=== PATIENT | female | born 1990 | race Hispanic/Latino ===

== ENCOUNTER 2022-08-27 15:22 | Emergency (ER) | payer OTHER, SELFPAY ==
[2022-08-27 15:31] VITALS: BP 125/72; PULSE 64; RESP 16; TEMP 36.8; O2SAT 100; BMI 25.0
--- NOTE | 2022-08-27 15:34 | DI.RAD.S_ITS ---
PROCEDURE: XR ANKLE LT MIN 3V INDICATIONS: ankle pain, fall TECHNIQUE: 3 views of the ankle were acquired. COMPARISON: None. FINDINGS: Bones: No fractures or dislocations. Ankle mortise is normally aligned. No suspicious bony lesions. Soft tissues: No tibiotalar joint effusion. Achilles tendon appears normal. IMPRESSION: No visualized acute fracture or dislocation. However, if clinical concern and/or pain persist, short interval imaging followup in 7-10 days is recommended, as occult injury cannot be definitively excluded. Dictated by: Kim Palmer M.D. on 08/27/2022 at 16:50 Approved by: Kim Palmer M.D. on 08/27/2022 at 16:50
--- NOTE | 2022-08-27 17:56 | ED_ITS ---
HPI - Extremity Injury (Lower) <Chinmay Salgado PA-C - Last Filed: 08/27/22 18:26> General Chief Complaint: Extremity Injury, Lower Stated Complaint: lt ankle injury Time Seen by Provider: 08/27/22 17:26 Source: patient Mode of arrival: Ambulatory History of Present Illness HPI Narrative: This is a 32-year-old female presents to the emergency department due to left ankle and foot pain after stepping off a stair and rolling it. She denies any numbness, changes in movement of her toes but does state some left ankle pain. Related Data Allergies Allergy/AdvReac Type Severity Reaction Status Date / Time No Known Drug Allergies Allergy Verified 08/27/22 15:33 Review of Systems <FLOWER Barrett Last Filed: 08/27/22 18:26> Review of Systems Narrative: GENERAL: Denies chills, fatigue, malaise, fever, sweats. HEENT: Denies sinus pain, ear pain, sore throat, difficulty swallowing, dizziness. RESPIRATORY: Denies dyspnea, cough, wheezing, hemoptysis, sputum. CARDIOVASCULAR: Denies chest pain, palpitations, orthopnea, edema, GASTROINTESTINAL: Denies nausea, vomiting, abdominal pain, diarrhea, constipation, melena. : Denies dysuria, frequency, incontinence, hematuria, urinary retention. MUSCULOSKELETAL: Left ankle pain SKIN: Denies rash, skin lesions, or other NEUROLOGIC: Denies weakness, headache, numbness, change in speech, confusion, seizures, incoordination. PSYCHIATRIC: No concerning psychosocial issues. 12 point review of systems is negative except for those stated above Patient History <FLOWER Barrett Last Filed: 08/27/22 18:26> Social History Smoking Status: Never smoker Smoking Status: Never smoker alcohol intake frequency: 0-2 drinks per day Substance Use Type: does not use Exam <FLOWER Barrett Last Filed: 08/27/22 18:26> Narrative Exam Narrative: GENERAL: Well-developed patient, in mild distress. HEAD: Atraumatic. Normocephalic. EYES: Pupils equal round and reactive. Extraocular motions intact. No scleral icterus. No injection or drainage. ENT: Nose without bleeding, purulent drainage. Throat without erythema, tonsillar hypertrophy or exudate. Airway patent. NECK: Trachea midline. Non tender CARDIOVASCULAR: Regular rate and rhythm without murmurs, gallops, or rubs. RESPIRATORY: Clear to auscultation. Breath sounds equal bilaterally. No wheezes, rales, or rhonchi. GASTROINTESTINAL: Abdomen soft, non-tender, nondistended. EXTREMITIES: Moderate tenderness palpation to the proximal dorsum of the foot. No pain with palpation of the medial or lateral malleolus is of the ankle. Neurovascularly intact throughout. BACK: Nontender without deformity or crepitance. No flank tenderness. NEURO: AOx3. SKIN: No rash or erythema of visible areas Initial Vital Signs Initial Vital Signs: Vital Signs Temperature 98.2 F 08/27/22 15:31 Pulse Rate 64 08/27/22 15:31 Respiratory Rate 16 08/27/22 15:31 Blood Pressure 125/72 08/27/22 15:31 Pulse Oximetry 100 08/27/22 15:31 Oxygen Delivery Method Room Air 08/27/22 15:31 <DO Dylan Olson Last Filed: 09/02/22 10:08> Initial Vital Signs Initial Vital Signs: Vital Signs Temperature 98.2 F 08/27/22 15:31 Pulse Rate 64 08/27/22 15:31 Respiratory Rate 16 08/27/22 15:31 Blood Pressure 125/72 08/27/22 15:31 Pulse Oximetry 100 08/27/22 15:31 Oxygen Delivery Method Room Air 08/27/22 15:31 Course <Chinmay Salgado PA-C - Last Filed: 08/27/22 18:26> Orders Ordered: ED Orders 08/27/22 15:34 XR ankle LT min 3V Stat Vital Signs Vital signs: Vital Signs - 8 hr 08/27/22 15:31 Temperature 98.2 F Pulse Rate 64 Respiratory Rate 16 Blood Pressure 125/72 Pulse Oximetry 100 Oxygen Delivery Method Room Air <DO Dylan Olson Last Filed: 09/02/22 10:08> Orders Ordered: ED Orders 08/27/22 15:34 XR ankle LT min 3V Stat Vital Signs Vital signs: Vital Signs - 8 hr 08/27/22 15:31 Temperature 98.2 F Pulse Rate 64 Respiratory Rate 16 Blood Pressure 125/72 Pulse Oximetry 100 Oxygen Delivery Method Room Air MDM - Extremity Injury (Lower) <FLOWER Barrett Last Filed: 08/27/22 18:26> Imaging Data Extremity x-ray #1: Radiologist's Impression: [address] [address] XRay Report Signed Patient: Carine Gonzalez MR#: [id number] : 1990 Acct:[id number] Age/Sex: 32 / F Date of Service: 08/27/22 Loc: ED Accession Number: [id number] ?? Procedure: XR ankle LT min 3V Ordering Provider: Alba Perez D.O. PROCEDURE:? XR ANKLE LT MIN 3V ? INDICATIONS:? ankle pain, fall ? TECHNIQUE:? 3 views of the ankle were acquired.? ? COMPARISON:? None. ? FINDINGS:? ? Bones:? No fractures or dislocations.? Ankle mortise is normally aligned.? No suspicious bony lesions.? ? Soft tissues:? No tibiotalar joint effusion.? Achilles tendon appears normal.? ? ? IMPRESSION:? No visualized acute fracture or dislocation. However, if clinical concern and/or pain persist, short interval imaging followup in 7-10 days is recommended, as occult injury cannot be definitively excluded. ? Dictated by: Kim Palmer M.D. on 08/27/2022 at 16:50 ? ? Approved by: Kim Palmer M.D. on 08/27/2022 at 16:50 ? MDM Narrative Medical decision making narrative: MDM * differential diagnosis includes but not limited to ankle sprain, fracture, nerve injury * Prior records reviewed: Patient has not been here for similar complaints in the past * My lab interpretation: None obtained * My imgaing interpretation: Ankle x-ray negative for fracture * Clinical Decision Rules/Scores evaluated: None * Independent discussions with: None ED Course: This is a 32-year-old female presents emergency department due to suspected ankle sprain. X-ray negative for fractures. She was neurovascularly intact throughout. Patient's ankle was wrapped here in the emergency department and instructions for RICE Shared Decision Making: None Social Considerations: None Disposition: Discharged to home Discharge Plan Departure Patient Disposition: Home Clinical Impression: Ankle sprain and strain Instructions: Ankle Sprain Activity Restrictions/Additional Instructions: Thank you for coming to the [facility] Emergency Department today. As we discussed your x-ray shows no signs of fracture. Please read the attached instructions for wheezing and treat your pain. Please use rest, ice, compression, and elevation I hope you feel better soon. Referrals: Eugene Talley [Primary Care Provider] - Stand Alone Forms: Patient Portal/API <Alba Perez DO - Last Filed: 09/02/22 10:08> Cosign ED Attending Hira Attestation: I was immediately available in the department for consultation. Documentation has been reviewed.
== END 2022-08-27 18:05 | disposition home or self-care (01) ==
PROVIDERS: Emergency Provider Physician Assistant Medical
DX: S93.402A Sprain of unspecified ligament of left ankle, initial encounter (principal); S96.912A Strain of unspecified muscle and tendon at ankle and foot level, left foot, initial encounter; X50.1XXA Overexertion from prolonged static or awkward postures, initial encounter
CPT/HCPCS: 73610; 99281; 99283

== ENCOUNTER 2024-01-19 14:30 | Outpatient (RCR) | payer OTHER, SELFPAY ==
--- NOTE | 2023-11-02 15:55 | PT.OIE ---
Current Diagnoses Low back pain, unspecified (11/02/23) Visit Care Team Role Provider Type Eugene Talley Primary Care Provider Non-Staff Specialty: Medical Address: [address] [place] [address], [id number] Email: Brenden Marin Attending Provider Non-Staff Family Provider Referring Provider Specialty: Medical Address: [address] [place] [address], [id number] Email: Physical Therapy Initial Evaluation PT-OP-A Visit Information Start: 11/02/23 12:57 Freq: Status: Active Protocol: Document 11/02/23 13:47 NM (Rec: 11/02/23 14:36 NM [id number]) Out-Patient Physical Therapy Visit Information Visit Information Visit Type Initial Evaluation Visit Note 12 visits Visit Start Time 13:45 Visit Stop Time 14:30 Visit Number 07/02 Evaluation Information Evaluation Date 11/02/23 PT-OP-B Current Condition Start: 11/02/23 12:57 Freq: Status: Active Protocol: Document 11/02/23 13:47 NM (Rec: 11/02/23 14:36 NM [id number]) Current Condition History of Current Condition Onset Date 2 months ago Current Complaints pain, glute weakness History of Current Condition Pt reports that she is having lower back pain at the bottom of her back. She reports that she has pain with sitting, which causes radiation up to the midback. She reports that her pain began about 2 months, unknown onset. She reports that stretching causes more pain (e.g. yoga like cat/cow, thread needle). She reports that she has pain with lifting (up to 200#), work out (e.g. squats, deadlifts), sleeping ( supine), sitting (extended feels better). She reports that the pain is episodic with increasing in frequency. She went to the ER in July due to pain in her buttocks; she states that they did not do any imaging, only did an anti- inflammatory injections/ lidocaine patches/muscle relaxers. No numbness/tingling , R sided tingling in foot. She also has L knee pain. 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 ; has to brace self on legs PT-OP-C Subjective Start: 11/02/23 12:57 Freq: Status: Active Protocol: Document 11/02/23 13:47 NM (Rec: 11/02/23 14:36 NM [id number]) OP-PT Subjective Patient Comments Patient Comments see hx above for pt report Patient Questionnaires Oswestry Low Back Index Oswestry Score 9/50 OP-PT Pain Assessment Location back Pain Location Details bandlike pattern, R>L, low near PSIS Intensity 3 Scale Used Numeric (0 - 10) Description Aching,Dull,Stabbing,Tightness Frequency Frequent Radiating Location to mid knee, HS pain; mid back B Pain Aggravating Factors Activity,Exercise,Sitting, Bending,Lifting,Breathing Pain Alleviating Factors Heat,Medication,Massage Home Pain Medication Use Pain Medications Used had Rx for anti-inflammatory but not taking PT-OP-E Functional Tests Start: 11/02/23 12:57 Freq: Status: Active Protocol: Document 11/02/23 13:47 NM (Rec: 11/02/23 14:36 NM [id number]) Functional Tests Squat Test Score 5 squats Comments increased tibial translation, R hip rot at hips, butt wink Other Forward Trunk Flexion Test Name of Test measured finger tip to floor Score 0 Comment able to touch floor; no pain w / flex, pain with return to ext PT-OP-F Manual Assessment Start: 11/02/23 12:57 Freq: Status: Active Protocol: Document 11/02/23 13:47 NM (Rec: 11/02/23 14:36 NM [id number]) Manual Assessments Soft Tissue Assessment Soft Tissue Mobility Assessment Pt has increased length of hamstrings. Increased tenderness along B paraspinals , R>L, and soft tissue restrictions of glutes/ piriformis. Joint Mobility Assessment Joint Mobility Assessment Overall hypomobility of lumbar spine with P-A springing of spinous processes. Decreased PROM of B hips, particulary IR . Right hip more limited than L hip. Pt also has L knee pain but full B knee ROM. PT-OP-G Mobility & Gait Start: 11/02/23 12:57 Freq: Status: Active Protocol: Document 11/02/23 13:47 NM (Rec: 11/02/23 14:36 NM [id number]) OP Gait Assessment Gait Gait Assistance Required: Independent Distance (Feet) 150 Assistive Devices Assistive Device None Gait Deviations General Gait Pattern Antalgic Factors Limiting Gait Function Factors Limiting Gait Function Decreased Activity Tolerance, Decreased Strength,Limited Range of Motion Comments Gait Comments Decreased trunk rotation PT-OP-H Neuro Start: 11/02/23 12:57 Freq: Status: Active Protocol: Document 11/02/23 13:47 NM (Rec: 11/02/23 14:36 NM [id number]) Sensation Evaluation Comments Summary Comments BLE intact to light touch sensation. Reports light tingling along posterior leg to posterior knee and occasionally to ankle PT-OP-J Posture/Palpation/Skin Start: 11/02/23 12:57 Freq: Status: Active Protocol: Document 11/02/23 13:47 NM (Rec: 11/02/23 14:36 NM [id number]) Posture Evaluation Position Standing Head/C-Spine Posture Forward Head L-Spine Posture Increased Lordosis Shoulder Posture (L) Forward,(R) Forward Scapula Posture (L) Protracted,(R) Protracted Arm Posture (L) Internally Rotated,(R) Internally Rotated Pelvis Posture Anteriorly Tilted Weight Distribution Weight Shifted Right Hip Posture (L) Externally Rotated,(R) Externally Rotated Knee Posture (L) Genu Valgus,(R) Genu Valgus Ankle/Foot Posture (L) Pronated,(R) Pronated Palpation Assessment Location lumbar spine Palpation Details Tightness of B paraspinals and glutes/piriformis (R>L) Tenderness of B PSIS (R>L) Pain with nutation but none with counternutation PT-OP-K Range of Motion Start: 11/02/23 12:57 Freq: Status: Active Protocol: Document 11/02/23 13:47 NM (Rec: 11/02/23 14:36 NM [id number]) Lumbar Spine Range of Motion Lumbar Spine Active Percentage Flexion 100 Extension 100 Lateral Flexion Left 100 Lateral Flexion Right 100 Comments L sided pain with extension at PSIS, return from flexion; B lateral flexion painful at muscles on either side moving into direction but felt on opposite side Hip Goniometric Range of Motion Hip Right Flexion w/Knee Flexed 120 Extension 10 Internal Rotation 15 External Rotation 35 Left Flexion w/Knee Flexed 120 Extension 10 Internal Rotation 20 External Rotation 20 Comments L hip flexion reproduces low back pain PT-OP-L Special Tests Start: 11/02/23 12:57 Freq: Status: Active Protocol: Document 11/02/23 13:47 NM (Rec: 11/02/23 14:36 NM [id number]) Special Tests Lumbar Spine Special Tests Active SLR Test Results + Comments symptoms improved with bracing SIJ Posterior Distraction Test Results + Comments bilaterally SIJ Thigh Thrust Test Results - Comments bilaterally SIJ Anterior Gapping Test Results + Comments bilaterally Slump Test Results - Distraction Test Results - Comments no change Corea/Quadrant Test Results + Comments R both, L R only; local Hip Special Tests JOHNNY Test Results + PT-OP-M Strength Start: 11/02/23 12:57 Freq: Status: Active Protocol: Document 11/02/23 13:47 NM (Rec: 11/02/23 14:36 NM [id number]) Trunk Strength Trunk Manual Muscle Testing Flexion 4 Good Extension 4 Good Rotation Left 4 Good Rotation Right 4 Good Lateral Flexion Left 4 Good Lateral Flexion Right 4- Good- Comments Pain with R rotation resisted B PSIS; pain with flexion Hip Strength Hip Manual Muscle Testing Right Flexion (L2) 4 Good Extension (S1) 3 Fair Abduction 4- Good- External Rotation 4 Good Internal Rotation 4- Good- Comments Back pain reproduced with resisted abduction and extension Left Flexion (L2) 4 Good Extension (S1) 3 Fair Abduction 4 Good Adduction 4 Good External Rotation 4 Good Internal Rotation 4- Good- Comments Back pain reproduced with extension Knee Strength Knee Manual Muscle Testing Right Flexion (S2) 4 Good Extension (L3) 4 Good Left Flexion (S2) 4 Good Extension (L3) 4 Good Ankle/Foot Strength Ankle and Foot Manual Muscle Testing Right Dorsiflexion (L4) 4 Good Plantarflexion (S1) 4 Good Comments full DF but increased sway Left Dorsiflexion (L4) 4 Good Plantarflexion (S1) 4 Good Comments full DF but increased sway PT-OP-T Assessment and Plan Start: 11/02/23 12:57 Freq: Status: Active Protocol: Document 11/02/23 13:47 NM (Rec: 11/02/23 14:36 NM [id number]) Physical Therapy Assessment Rehab Potential Rehabilitation Potential Good Evaluation Complexity Number of Personal Factors/Comorbidities 1-2 Number of Body Systems Impaired 1-2 Clinical Presentation at Evaluation Stable Impairments Impairments Activity Tolerance,Balance, Functional Activities, Functional Mobility,Gait, Integument,Pain,Posture,ROM, Sensation,Soft Tissue Mobility ,Strength,Transfers Goals Four Impairment strength Impairment impaired glute strength Short Term Goal (STG) Pt will increase B hip extension and abduction strength to at least 4/5 MMT in order to demonstrate improved strength for exercise , running, and ADLs STG Duration 6 weeks Custodial Goal (LTG) Pt will increase B hip extension and abduction strength to at least 4+/5 MMT in order to demonstrate improved strength for exercise , running, and ADLs LTG Duration 12 weeks Three Impairment ROM Impairment R hip IR 15 deg Short Term Goal (STG) Pt will improve R hip IR to at least 20 deg in order to demonstrate improved hip mobility for squats and ADLs STG Duration 6 weeks Account Clerk Goal (LTG) Pt will improve R hip IR to at least 25 deg in order to demonstrate improved hip mobility for squats and ADLs LTG Duration 12 weeks Two Impairment ROM Impairment L hip IR and ER 20 deg Short Term Goal (STG) Pt will improve L hip IR and ER to at least 25 deg in order to demonstrate improved hip mobility for squats and ADLs STG Duration 6 weeks Custodial Goal (LTG) Pt will improve L hip IR and ER to at least 30 deg in order to demonstrate improved hip mobility for squats and ADLs LTG Duration 12 weeks One Impairment function Impairment Oswestry 9/50 Account Clerk Goal (LTG) Pt will decrease Oswestry <9/ 50 in order to demonstrate improved QOL and activity tolerance LTG Duration 12 weeks Assessment Summary Assessment Pt is a 33 y.o. female presenting with low back pain. Pain is worse with 3D motion, indicating facet involvement. Pt also has tingling and nerve-related symptoms indicating nerve root involvement. She has not had any imaging, but she has received an anti-inflammatory injection, anti-inflammatory medication and muscle relaxers . Her most recent exacerbation was in July, where pt was unable to ambulate due to pain. Overall, pt has pain with higher level functional activities and ADLs, including resisted/loaded squats, bending, positional changes, and increased intra-abdominal pressure. She also demonstrate likely thoracolumbar paraspinal involvement. Pt has full trunk ROM, but pain with lateral flexion and extension . She has limitations in B hip ROM, particularly IR/ER with R hip more limited than L hip. Pt has difficulty with stabilizing her trunk against resistance and pain with resisted rotation and flexion. She also has pain with resisted hip abduction and extension, in addition to weakness. She has increased muscle tightness along lumbar paraspinals and bilateral glutes/piriformis, in addition to tenderness along palpation of PSIS and lower lumbar spine. Pt also has positive 3D testing with compression, JOHNNY tests. Additionally, pt has L knee pain that was previously being treated in PT without resolution that may impact progression with PT. PT discussed exam findings and plan of care with pt, who verbalizes agreement. Depending on pt progression with PT, pt will be referred back for imaging and further assessment. Pt would benefit from skilled PT to improve flexibility, reduce pain symptoms, and improve activity tolerance. Physical Therapy Plan Frequency and Duration Frequency of Treatment 1-2x/wk Duration of treatment (weeks) 12 Plan of Care Start Date 11/02/23 Plan of Care End Date 01/28/24 Therapeutic Interventions Therapeutic Interventions Balance Training,Coordination Training,Gait Training,Home Exercise Program,Joint Mobilizations,Manual Therapy, Neuromuscular Re-education, Orthotic/Prosthetic Management ,Patient/Caregiver Education, Self-Care/Home Management, Sensory Integration,Soft Tissue Mobilization,Taping, Therapeutic Activities, Therapeutic Exercises Modalities Cold Pack/Ice Massage,Electric Stimulation,Hot Packs, Ultrasound Next Visit Focus/Plan Next Note Type Treatment Note Next Visit Plan hip IR mobility in quadruped, SL bridge, hip ER/IR
--- NOTE | 2023-11-08 09:52 | PT.OTN ---
Current Diagnoses Low back pain, unspecified (11/08/23) Weakness (11/08/23) Physical Therapy Treatment Note PT-OP-A Visit Information Start: 11/02/23 12:57 Freq: Status: Active Protocol: Document 11/08/23 09:02 NM (Rec: 11/08/23 09:52 NM [id number]) Out-Patient Physical Therapy Visit Information Visit Information Visit Type Treatment Note Visit Note 12 visits Visit Start Time 09:03 Visit Stop Time 09:45 Visit Number 08/02 Evaluation Information Evaluation Date 11/02/23 PT-OP-B Current Condition Start: 11/02/23 12:57 Freq: Status: Active Protocol: Document 11/02/23 13:47 NM (Rec: 11/02/23 14:36 NM [id number]) Current Condition History of Current Condition Onset Date 2 months ago Current Complaints pain, glute weakness History of Current Condition Pt reports that she is having lower back pain at the bottom of her back. She reports that she has pain with sitting, which causes radiation up to the midback. She reports that her pain began about 2 months, unknown onset. She reports that stretching causes more pain (e.g. yoga like cat/cow, thread needle). She reports that she has pain with lifting (up to 200#), work out (e.g. squats, deadlifts), sleeping ( supine), sitting (extended feels better). She reports that the pain is episodic with increasing in frequency. She went to the ER in July due to pain in her buttocks; she states that they did not do any imaging, only did an anti- inflammatory injections/ lidocaine patches/muscle relaxers. No numbness/tingling , R sided tingling in foot. She also has L knee pain. 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 PT-OP-E Functional Tests Start: 11/02/23 12:57 Freq: Status: Active Protocol: Document 11/02/23 13:47 NM (Rec: 11/02/23 14:36 NM [id number]) Functional Tests Squat Test Score 5 squats Comments increased tibial translation, R hip rot at hips, butt wink Other Forward Trunk Flexion Test Name of Test measured finger tip to floor Score 0 Comment able to touch floor; no pain w / flex, pain with return to ext PT-OP-F Manual Assessment Start: 11/02/23 12:57 Freq: Status: Active Protocol: Document 11/02/23 13:47 NM (Rec: 11/02/23 14:36 NM [id number]) Manual Assessments Soft Tissue Assessment Soft Tissue Mobility Assessment Pt has increased length of hamstrings. Increased tenderness along B paraspinals , R>L, and soft tissue restrictions of glutes/ piriformis. Joint Mobility Assessment Joint Mobility Assessment Overall hypomobility of lumbar spine with P-A springing of spinous processes. Decreased PROM of B hips, particulary IR . Right hip more limited than L hip. Pt also has L knee pain but full B knee ROM. PT-OP-G Mobility & Gait Start: 11/02/23 12:57 Freq: Status: Active Protocol: Document 11/02/23 13:47 NM (Rec: 11/02/23 14:36 NM [id number]) OP Gait Assessment Gait Gait Assistance Required: Independent Distance (Feet) 150 Assistive Devices Assistive Device None Gait Deviations General Gait Pattern Antalgic Factors Limiting Gait Function Factors Limiting Gait Function Decreased Activity Tolerance, Decreased Strength,Limited Range of Motion Comments Gait Comments Decreased trunk rotation PT-OP-H Neuro Start: 11/02/23 12:57 Freq: Status: Active Protocol: Document 11/02/23 13:47 NM (Rec: 11/02/23 14:36 NM [id number]) Sensation Evaluation Comments Summary Comments BLE intact to light touch sensation. Reports light tingling along posterior leg to posterior knee and occasionally to ankle PT-OP-J Posture/Palpation/Skin Start: 11/02/23 12:57 Freq: Status: Active Protocol: Document 11/02/23 13:47 NM (Rec: 11/02/23 14:36 NM [id number]) Posture Evaluation Position Standing Head/C-Spine Posture Forward Head L-Spine Posture Increased Lordosis Shoulder Posture (L) Forward,(R) Forward Scapula Posture (L) Protracted,(R) Protracted Arm Posture (L) Internally Rotated,(R) Internally Rotated Pelvis Posture Anteriorly Tilted Weight Distribution Weight Shifted Right Hip Posture (L) Externally Rotated,(R) Externally Rotated Knee Posture (L) Genu Valgus,(R) Genu Valgus Ankle/Foot Posture (L) Pronated,(R) Pronated Palpation Assessment Location lumbar spine Palpation Details Tightness of B paraspinals and glutes/piriformis (R>L) Tenderness of B PSIS (R>L) Pain with nutation but none with counternutation PT-OP-K Range of Motion Start: 11/02/23 12:57 Freq: Status: Active Protocol: Document 11/02/23 13:47 NM (Rec: 11/02/23 14:36 NM [id number]) Lumbar Spine Range of Motion Lumbar Spine Active Percentage Flexion 100 Extension 100 Lateral Flexion Left 100 Lateral Flexion Right 100 Comments L sided pain with extension at PSIS, return from flexion; B lateral flexion painful at muscles on either side moving into direction but felt on opposite side Hip Goniometric Range of Motion Hip Right Flexion w/Knee Flexed 120 Extension 10 Internal Rotation 15 External Rotation 35 Left Flexion w/Knee Flexed 120 Extension 10 Internal Rotation 20 External Rotation 20 Comments L hip flexion reproduces low back pain PT-OP-L Special Tests Start: 11/02/23 12:57 Freq: Status: Active Protocol: Document 11/02/23 13:47 NM (Rec: 11/02/23 14:36 NM [id number]) Special Tests Lumbar Spine Special Tests Active SLR Test Results + Comments symptoms improved with bracing SIJ Posterior Distraction Test Results + Comments bilaterally SIJ Thigh Thrust Test Results - Comments bilaterally SIJ Anterior Gapping Test Results + Comments bilaterally Slump Test Results - Distraction Test Results - Comments no change Corea/Quadrant Test Results + Comments R both, L R only; local Hip Special Tests JOHNNY Test Results + PT-OP-M Strength Start: 11/02/23 12:57 Freq: Status: Active Protocol: Document 11/02/23 13:47 NM (Rec: 11/02/23 14:36 NM [id number]) Trunk Strength Trunk Manual Muscle Testing Flexion 4 Good Extension 4 Good Rotation Left 4 Good Rotation Right 4 Good Lateral Flexion Left 4 Good Lateral Flexion Right 4- Good- Comments Pain with R rotation resisted B PSIS; pain with flexion Hip Strength Hip Manual Muscle Testing Right Flexion (L2) 4 Good Extension (S1) 3 Fair Abduction 4- Good- External Rotation 4 Good Internal Rotation 4- Good- Comments Back pain reproduced with resisted abduction and extension Left Flexion (L2) 4 Good Extension (S1) 3 Fair Abduction 4 Good Adduction 4 Good External Rotation 4 Good Internal Rotation 4- Good- Comments Back pain reproduced with extension Knee Strength Knee Manual Muscle Testing Right Flexion (S2) 4 Good Extension (L3) 4 Good Left Flexion (S2) 4 Good Extension (L3) 4 Good Ankle/Foot Strength Ankle and Foot Manual Muscle Testing Right Dorsiflexion (L4) 4 Good Plantarflexion (S1) 4 Good Comments full DF but increased sway Left Dorsiflexion (L4) 4 Good Plantarflexion (S1) 4 Good Comments full DF but increased sway PT-OP-Q Treatments Start: 11/02/23 12:57 Freq: Status: Active Protocol: Document 11/08/23 09:02 NM (Rec: 11/08/23 09:52 NM [id number]) Therapeutic Exercises Supine Exercises stretching Supine Exercise Name 1. figure 4 pretzel, 2. piriformis stretch (IR/ADD cross body) Side bilateral Reps/Minutes 1x60 ea Comments R more restricted Prone Exercises child's pose Side bilateral Reps/Minutes 1x60 Comments pain free Standing Exercises hip IR Side bilateral Equipment Used arms on elevated plinth in front Reps/Minutes 1x10 Comments pain with first, improved with reps, feels so good Other Exercises self soft tissue mobilization Other Exercise Name piriformis Side bilateral Equipment Used racquetball Reps/Minutes 1x10 Comments MWM with ER/IR; L more restricted than R quadruped Other Exercise Name 1. cat/camel to neutral spine, 2.tail wags Side bilateral Reps/Minutes 1. 1x12, 2. 1x12 Comments pain free if to neutral spine Manual Therapy Treatment Soft Tissue Mobilization lumbar/glutes/HS Body Location bilateral Lumbar paraspinals, glutes/piriformis, hamstrings Mobilization Type Instrument Assisted, Oscillations,Rolling,Sustained Pressure Intensity/Depth Moderate Body Position Prone Comments Increased tightness of B paraspinals and glutes. R more restricted and tight than L. Slight tenderness near lower lumbar paraspinals on R side. Pt reported less tightness post manual tx and stretching MWM with trigger point on piriformis R, into ER/IR of hip Joint Mobilizations lumbar spine Joint L1-L5 Direction P-A Grade II Body Position Prone Reps/Duration 2x30 ea Comments Tenderness along lower lumbar spine, denies increase in pain or other symptoms. Improved with reps. For pain reduction Self-Care/Home Management Treatment Education Patient Education Home Exercise Program,Pain Management Other Education HEP: piriformis mobilization, piriformis stretches PT-OP-T Assessment and Plan Start: 11/02/23 12:57 Freq: Status: Active Protocol: Document 11/08/23 09:02 NM (Rec: 11/08/23 09:52 NM [id number]) Physical Therapy Assessment Goals Four Impairment strength Impairment impaired glute strength Short Term Goal (STG) Pt will increase B hip extension and abduction strength to at least 4/5 MMT in order to demonstrate improved strength for exercise , running, and ADLs STG Duration 6 weeks Group Home Goal (LTG) Pt will increase B hip extension and abduction strength to at least 4+/5 MMT in order to demonstrate improved strength for exercise , running, and ADLs LTG Duration 12 weeks Three Impairment ROM Impairment R hip IR 15 deg Short Term Goal (STG) Pt will improve R hip IR to at least 20 deg in order to demonstrate improved hip mobility for squats and ADLs STG Duration 6 weeks Journalist Goal (LTG) Pt will improve R hip IR to at least 25 deg in order to demonstrate improved hip mobility for squats and ADLs LTG Duration 12 weeks Two Impairment ROM Impairment L hip IR and ER 20 deg Short Term Goal (STG) Pt will improve L hip IR and ER to at least 25 deg in order to demonstrate improved hip mobility for squats and ADLs STG Duration 6 weeks Journalist Goal (LTG) Pt will improve L hip IR and ER to at least 30 deg in order to demonstrate improved hip mobility for squats and ADLs LTG Duration 12 weeks One Impairment function Impairment Oswestry 9/50 Group Home Goal (LTG) Pt will decrease Oswestry <9/ 50 in order to demonstrate improved QOL and activity tolerance LTG Duration 12 weeks Assessment Summary Assessment Pt tolerated session well. Emphasis on improved trunk and hip mobility. Pt continues to lap B hip IR primarily. Initiated piriformis mobilization, stretching. Followed by hip mobility in quadruped and standing. Pt requires cues to maintain neutral spine positioning during cat camel, pili pose, which decreased any feelings of pain. Pt has improved mobility and reports good feedback to hip IR airplane post stretching and manual. Manual treatment initiated with grade II mobilizations of lower lumbar spine for continued pain reduction. Pt has tenderness along lower lumbar spine, primarily along R side. Educated on self soft tissue mobilization for pain reduction and symptom management. Pt would benefit from skilled PT for lumbar and core strengthening and hip mobility in order to improve ability to participate in ADLs and recreational activities. Physical Therapy Plan Frequency and Duration Frequency of Treatment 1-2x/wk Duration of treatment (weeks) 12 Plan of Care Start Date 11/02/23 Plan of Care End Date 01/28/24 Therapeutic Interventions Therapeutic Interventions Balance Training,Coordination Training,Gait Training,Home Exercise Program,Joint Mobilizations,Manual Therapy, Neuromuscular Re-education, Orthotic/Prosthetic Management ,Patient/Caregiver Education, Self-Care/Home Management, Sensory Integration,Soft Tissue Mobilization,Taping, Therapeutic Activities, Therapeutic Exercises Modalities Cold Pack/Ice Massage,Electric Stimulation,Hot Packs, Ultrasound Next Visit Focus/Plan Next Note Type Treatment Note Next Visit Plan hip IR mobility in quadruped, SL bridge, hip ER/IR Next session: VPAC with core, hip IR airplane, IR/ER rock back
--- NOTE | 2023-11-11 15:36 | PT.OTN ---
Current Diagnoses Low back pain, unspecified (11/11/23) Weakness (11/11/23) Physical Therapy Treatment Note PT-OP-A Visit Information Start: 11/02/23 12:57 Freq: Status: Active Protocol: Document 11/11/23 14:33 NM (Rec: 11/11/23 15:36 NM [id number]) Out-Patient Physical Therapy Visit Information Visit Information Visit Type Treatment Note Visit Note 12 visits Visit Start Time 14:33 Visit Stop Time 15:15 Visit Number 08/30 PT-OP-B Current Condition Start: 11/02/23 12:57 Freq: Status: Active Protocol: Document 11/02/23 13:47 NM (Rec: 11/02/23 14:36 NM [id number]) Current Condition History of Current Condition Onset Date 2 months ago Current Complaints pain, glute weakness History of Current Condition Pt reports that she is having lower back pain at the bottom of her back. She reports that she has pain with sitting, which causes radiation up to the midback. She reports that her pain began about 2 months, unknown onset. She reports that stretching causes more pain (e.g. yoga like cat/cow, thread needle). She reports that she has pain with lifting (up to 200#), work out (e.g. squats, deadlifts), sleeping ( supine), sitting (extended feels better). She reports that the pain is episodic with increasing in frequency. She went to the ER in July due to pain in her buttocks; she states that they did not do any imaging, only did an anti- inflammatory injections/ lidocaine patches/muscle relaxers. No numbness/tingling , R sided tingling in foot. She also has L knee pain. 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 States felt good after last session but still has tightness in low back and glutes. Has PRT (fitness exam coming up in 1 week) PT-OP-E Functional Tests Start: 11/02/23 12:57 Freq: Status: Active Protocol: Document 11/02/23 13:47 NM (Rec: 11/02/23 14:36 NM [id number]) Functional Tests Squat Test Score 5 squats Comments increased tibial translation, R hip rot at hips, butt wink Other Forward Trunk Flexion Test Name of Test measured finger tip to floor Score 0 Comment able to touch floor; no pain w / flex, pain with return to ext PT-OP-F Manual Assessment Start: 11/02/23 12:57 Freq: Status: Active Protocol: Document 11/02/23 13:47 NM (Rec: 11/02/23 14:36 NM [id number]) Manual Assessments Soft Tissue Assessment Soft Tissue Mobility Assessment Pt has increased length of hamstrings. Increased tenderness along B paraspinals , R>L, and soft tissue restrictions of glutes/ piriformis. Joint Mobility Assessment Joint Mobility Assessment Overall hypomobility of lumbar spine with P-A springing of spinous processes. Decreased PROM of B hips, particulary IR . Right hip more limited than L hip. Pt also has L knee pain but full B knee ROM. PT-OP-G Mobility & Gait Start: 11/02/23 12:57 Freq: Status: Active Protocol: Document 11/02/23 13:47 NM (Rec: 11/02/23 14:36 NM [id number]) OP Gait Assessment Gait Gait Assistance Required: Independent Distance (Feet) 150 Assistive Devices Assistive Device None Gait Deviations General Gait Pattern Antalgic Factors Limiting Gait Function Factors Limiting Gait Function Decreased Activity Tolerance, Decreased Strength,Limited Range of Motion Comments Gait Comments Decreased trunk rotation PT-OP-H Neuro Start: 11/02/23 12:57 Freq: Status: Active Protocol: Document 11/02/23 13:47 NM (Rec: 11/02/23 14:36 NM [id number]) Sensation Evaluation Comments Summary Comments BLE intact to light touch sensation. Reports light tingling along posterior leg to posterior knee and occasionally to ankle PT-OP-J Posture/Palpation/Skin Start: 11/02/23 12:57 Freq: Status: Active Protocol: Document 11/02/23 13:47 NM (Rec: 11/02/23 14:36 NM [id number]) Posture Evaluation Position Standing Head/C-Spine Posture Forward Head L-Spine Posture Increased Lordosis Shoulder Posture (L) Forward,(R) Forward Scapula Posture (L) Protracted,(R) Protracted Arm Posture (L) Internally Rotated,(R) Internally Rotated Pelvis Posture Anteriorly Tilted Weight Distribution Weight Shifted Right Hip Posture (L) Externally Rotated,(R) Externally Rotated Knee Posture (L) Genu Valgus,(R) Genu Valgus Ankle/Foot Posture (L) Pronated,(R) Pronated Palpation Assessment Location lumbar spine Palpation Details Tightness of B paraspinals and glutes/piriformis (R>L) Tenderness of B PSIS (R>L) Pain with nutation but none with counternutation PT-OP-K Range of Motion Start: 11/02/23 12:57 Freq: Status: Active Protocol: Document 11/02/23 13:47 NM (Rec: 11/02/23 14:36 NM [id number]) Lumbar Spine Range of Motion Lumbar Spine Active Percentage Flexion 100 Extension 100 Lateral Flexion Left 100 Lateral Flexion Right 100 Comments L sided pain with extension at PSIS, return from flexion; B lateral flexion painful at muscles on either side moving into direction but felt on opposite side Hip Goniometric Range of Motion Hip Right Flexion w/Knee Flexed 120 Extension 10 Internal Rotation 15 External Rotation 35 Left Flexion w/Knee Flexed 120 Extension 10 Internal Rotation 20 External Rotation 20 Comments L hip flexion reproduces low back pain PT-OP-L Special Tests Start: 11/02/23 12:57 Freq: Status: Active Protocol: Document 11/02/23 13:47 NM (Rec: 11/02/23 14:36 NM [id number]) Special Tests Lumbar Spine Special Tests Active SLR Test Results + Comments symptoms improved with bracing SIJ Posterior Distraction Test Results + Comments bilaterally SIJ Thigh Thrust Test Results - Comments bilaterally SIJ Anterior Gapping Test Results + Comments bilaterally Slump Test Results - Distraction Test Results - Comments no change Corea/Quadrant Test Results + Comments R both, L R only; local Hip Special Tests JOHNNY Test Results + PT-OP-M Strength Start: 11/02/23 12:57 Freq: Status: Active Protocol: Document 11/02/23 13:47 NM (Rec: 11/02/23 14:36 NM [id number]) Trunk Strength Trunk Manual Muscle Testing Flexion 4 Good Extension 4 Good Rotation Left 4 Good Rotation Right 4 Good Lateral Flexion Left 4 Good Lateral Flexion Right 4- Good- Comments Pain with R rotation resisted B PSIS; pain with flexion Hip Strength Hip Manual Muscle Testing Right Flexion (L2) 4 Good Extension (S1) 3 Fair Abduction 4- Good- External Rotation 4 Good Internal Rotation 4- Good- Comments Back pain reproduced with resisted abduction and extension Left Flexion (L2) 4 Good Extension (S1) 3 Fair Abduction 4 Good Adduction 4 Good External Rotation 4 Good Internal Rotation 4- Good- Comments Back pain reproduced with extension Knee Strength Knee Manual Muscle Testing Right Flexion (S2) 4 Good Extension (L3) 4 Good Left Flexion (S2) 4 Good Extension (L3) 4 Good Ankle/Foot Strength Ankle and Foot Manual Muscle Testing Right Dorsiflexion (L4) 4 Good Plantarflexion (S1) 4 Good Comments full DF but increased sway Left Dorsiflexion (L4) 4 Good Plantarflexion (S1) 4 Good Comments full DF but increased sway PT-OP-Q Treatments Start: 11/02/23 12:57 Freq: Status: Active Protocol: Document 11/11/23 14:33 NM (Rec: 11/11/23 15:36 NM [id number]) Therapeutic Exercises Supine Exercises TrA activation Supine Exercise Name 1. w/ breathing, 2. heel slides, 3. LTR Side bilateral Equipment Used self tactile cues medial to ASIS for feedback, PT tactile/ verbal cues Reps/Minutes 1. 10 breaths w/ 1 holds, 2. 1x10 ea, 3. 2x8 w/ breaths Comments core brace challenging to maintain; LTR feels good, edu AM mobility Prone Exercises plank Prone Exercise Name trialed for core strength measurement Equipment Used mat on floor Reps/Minutes 30 sec Comments signs of instability; breath holding child's pose Prone Exercise Name 1. rock back w/ hip ER, 2. rock back with hip IR Side bilateral Equipment Used mat on floor Reps/Minutes 1x10 ea w/ 5 hold ea Comments mild midline discomfort near R TS Other Exercises quadruped Other Exercise Name 1. cat/camel neutral spine, 2. child pose lateral flex w/ tail wag Side bilateral Reps/Minutes 1x15 ea Comments improved spinal mobility, pain free to neutral spine w/ cat/ camel Manual Therapy Treatment Soft Tissue Mobilization lumbar/glutes/HS Body Location bilateral Lumbar paraspinals, glutes/piriformis, hamstrings Mobilization Type Instrument Assisted, Oscillations,Rolling,Sustained Pressure Intensity/Depth Moderate Body Position Prone Comments Increased tightness of B paraspinals and glutes. R more restricted and tight than L, pt report worse today than previous session. Slight tenderness near lower lumbar paraspinals on R side. 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 With ER and IR bias to improve hip rotation. Tolerated well, good feedback and reports no pain lumbar spine Joint L1-L5 Direction P-A Grade II Body Position Prone Reps/Duration 1x30 ea Comments Tenderness along mid-lower lumbar spine, denies increase in pain or other symptoms. Trialed grade III, but d/c due to increase discomfort w/ mobilization. Grade II tolerable, no pain Self-Care/Home Management Treatment Education Patient Education Body Mechanics,Home Exercise Program,Joint Protection,Pain Management Other Education Education on sleeping position (issue handout), VPAC/core bracing with lifting and strenuous activity, education also on reducing breath holding HEP: LTR, cat-camel to neutral spine PT-OP-T Assessment and Plan Start: 11/02/23 12:57 Freq: Status: Active Protocol: Document 11/11/23 14:33 NM (Rec: 11/11/23 15:36 NM [id number]) Physical Therapy Assessment Goals Four Impairment strength Impairment impaired glute strength Short Term Goal (STG) Pt will increase B hip extension and abduction strength to at least 4/5 MMT in order to demonstrate improved strength for exercise , running, and ADLs STG Duration 6 weeks Diversity Manager Goal (LTG) Pt will increase B hip extension and abduction strength to at least 4+/5 MMT in order to demonstrate improved strength for exercise , running, and ADLs LTG Duration 12 weeks Three Impairment ROM Impairment R hip IR 15 deg Short Term Goal (STG) Pt will improve R hip IR to at least 20 deg in order to demonstrate improved hip mobility for squats and ADLs STG Duration 6 weeks Intermediate Goal (LTG) Pt will improve R hip IR to at least 25 deg in order to demonstrate improved hip mobility for squats and ADLs LTG Duration 12 weeks Two Impairment ROM Impairment L hip IR and ER 20 deg Short Term Goal (STG) Pt will improve L hip IR and ER to at least 25 deg in order to demonstrate improved hip mobility for squats and ADLs STG Duration 6 weeks Diversity Manager Goal (LTG) Pt will improve L hip IR and ER to at least 30 deg in order to demonstrate improved hip mobility for squats and ADLs LTG Duration 12 weeks One Impairment function Impairment Oswestry 9/50 Diversity Manager Goal (LTG) Pt will decrease Oswestry <9/ 50 in order to demonstrate improved QOL and activity tolerance LTG Duration 12 weeks Assessment Summary Assessment Pt tolerated session well. Emphasis on improving hip mobility and core bracing. Initiated hip mobilizations to increase R hip mobility, particularly into rotation. Pt has visible improvement in mobility with child pose rock backs post manual compared to pre-manual. Tenderness reported with grade III mobilizations of mid-lumbar spine, none with grade II so did not progress lumbar joint mobilizations. Pt demonstrates difficulty with maintaining good core bracing during plank and supine core activities, has signs of instability and feels challenged by exercises. PT educated pt on limiting breath holding, in addition to providing verbal and tactile cues to pt in order to improve trunk stability. Issued HEP to decrease tightness in morning and handout on sleeping position. Pt would benefit from skilled PT for symptom management and core stabilization/hip mobility training in order to improve activity tolerance and QOL. Physical Therapy Plan Frequency and Duration Frequency of Treatment 1-2x/wk Duration of treatment (weeks) 12 Plan of Care Start Date 11/02/23 Plan of Care End Date 01/28/24 Therapeutic Interventions Therapeutic Interventions Balance Training,Coordination Training,Gait Training,Home Exercise Program,Joint Mobilizations,Manual Therapy, Neuromuscular Re-education, Orthotic/Prosthetic Management ,Patient/Caregiver Education, Self-Care/Home Management, Sensory Integration,Soft Tissue Mobilization,Taping, Therapeutic Activities, Therapeutic Exercises Modalities Cold Pack/Ice Massage,Electric Stimulation,Hot Packs, Ultrasound Next Visit Focus/Plan Next Note Type Treatment Note Next Visit Plan Next session: BKFO, breathing/ TrA with core, hip mob (do bilateral), hip hinge + staggered stance RDL, single leg bridge (if tolerated) vs step up, 1/2 kneel hip flexor with side reach Manual: STM to lumbar spine, glutes; hip mob, grade II mob of lumbar spine only
--- NOTE | 2023-11-18 15:36 | PT.OTN ---
Current Diagnoses Low back pain, unspecified (11/18/23) Weakness (11/18/23) Physical Therapy Treatment Note PT-OP-A Visit Information Start: 11/02/23 12:57 Freq: Status: Active Protocol: Document 11/18/23 14:45 NM (Rec: 11/18/23 15:36 NM [id number]) Out-Patient Physical Therapy Visit Information Visit Information Visit Type Treatment Note Visit Note 12 visits Visit Start Time 14:45 Visit Stop Time 15:18 Visit Number 10/30 Evaluation Information Evaluation Date 11/02/23 PT-OP-B Current Condition Start: 11/02/23 12:57 Freq: Status: Active Protocol: Document 11/02/23 13:47 NM (Rec: 11/02/23 14:36 NM [id number]) Current Condition History of Current Condition Onset Date 2 months ago Current Complaints pain, glute weakness History of Current Condition Pt reports that she is having lower back pain at the bottom of her back. She reports that she has pain with sitting, which causes radiation up to the midback. She reports that her pain began about 2 months, unknown onset. She reports that stretching causes more pain (e.g. yoga like cat/cow, thread needle). She reports that she has pain with lifting (up to 200#), work out (e.g. squats, deadlifts), sleeping ( supine), sitting (extended feels better). She reports that the pain is episodic with increasing in frequency. She went to the ER in July due to pain in her buttocks; she states that they did not do any imaging, only did an anti- inflammatory injections/ lidocaine patches/muscle relaxers. No numbness/tingling , R sided tingling in foot. She also has L knee pain. 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 States she realizes that her core is weak while doing planks. Reports that her back feels better since starting PT and she is more aware of using her core vs her back to lift, but she still has poor hip mobility. PT-OP-E Functional Tests Start: 11/02/23 12:57 Freq: Status: Active Protocol: Document 11/02/23 13:47 NM (Rec: 11/02/23 14:36 NM [id number]) Functional Tests Squat Test Score 5 squats Comments increased tibial translation, R hip rot at hips, butt wink Other Forward Trunk Flexion Test Name of Test measured finger tip to floor Score 0 Comment able to touch floor; no pain w / flex, pain with return to ext PT-OP-F Manual Assessment Start: 11/02/23 12:57 Freq: Status: Active Protocol: Document 11/02/23 13:47 NM (Rec: 11/02/23 14:36 NM [id number]) Manual Assessments Soft Tissue Assessment Soft Tissue Mobility Assessment Pt has increased length of hamstrings. Increased tenderness along B paraspinals , R>L, and soft tissue restrictions of glutes/ piriformis. Joint Mobility Assessment Joint Mobility Assessment Overall hypomobility of lumbar spine with P-A springing of spinous processes. Decreased PROM of B hips, particulary IR . Right hip more limited than L hip. Pt also has L knee pain but full B knee ROM. PT-OP-G Mobility & Gait Start: 11/02/23 12:57 Freq: Status: Active Protocol: Document 11/02/23 13:47 NM (Rec: 11/02/23 14:36 NM [id number]) OP Gait Assessment Gait Gait Assistance Required: Independent Distance (Feet) 150 Assistive Devices Assistive Device None Gait Deviations General Gait Pattern Antalgic Factors Limiting Gait Function Factors Limiting Gait Function Decreased Activity Tolerance, Decreased Strength,Limited Range of Motion Comments Gait Comments Decreased trunk rotation PT-OP-H Neuro Start: 11/02/23 12:57 Freq: Status: Active Protocol: Document 11/02/23 13:47 NM (Rec: 11/02/23 14:36 NM [id number]) Sensation Evaluation Comments Summary Comments BLE intact to light touch sensation. Reports light tingling along posterior leg to posterior knee and occasionally to ankle PT-OP-J Posture/Palpation/Skin Start: 11/02/23 12:57 Freq: Status: Active Protocol: Document 11/02/23 13:47 NM (Rec: 11/02/23 14:36 NM [id number]) Posture Evaluation Position Standing Head/C-Spine Posture Forward Head L-Spine Posture Increased Lordosis Shoulder Posture (L) Forward,(R) Forward Scapula Posture (L) Protracted,(R) Protracted Arm Posture (L) Internally Rotated,(R) Internally Rotated Pelvis Posture Anteriorly Tilted Weight Distribution Weight Shifted Right Hip Posture (L) Externally Rotated,(R) Externally Rotated Knee Posture (L) Genu Valgus,(R) Genu Valgus Ankle/Foot Posture (L) Pronated,(R) Pronated Palpation Assessment Location lumbar spine Palpation Details Tightness of B paraspinals and glutes/piriformis (R>L) Tenderness of B PSIS (R>L) Pain with nutation but none with counternutation PT-OP-K Range of Motion Start: 11/02/23 12:57 Freq: Status: Active Protocol: Document 11/02/23 13:47 NM (Rec: 11/02/23 14:36 NM [id number]) Lumbar Spine Range of Motion Lumbar Spine Active Percentage Flexion 100 Extension 100 Lateral Flexion Left 100 Lateral Flexion Right 100 Comments L sided pain with extension at PSIS, return from flexion; B lateral flexion painful at muscles on either side moving into direction but felt on opposite side Hip Goniometric Range of Motion Hip Right Flexion w/Knee Flexed 120 Extension 10 Internal Rotation 15 External Rotation 35 Left Flexion w/Knee Flexed 120 Extension 10 Internal Rotation 20 External Rotation 20 Comments L hip flexion reproduces low back pain PT-OP-L Special Tests Start: 11/02/23 12:57 Freq: Status: Active Protocol: Document 11/02/23 13:47 NM (Rec: 11/02/23 14:36 NM [id number]) Special Tests Lumbar Spine Special Tests Active SLR Test Results + Comments symptoms improved with bracing SIJ Posterior Distraction Test Results + Comments bilaterally SIJ Thigh Thrust Test Results - Comments bilaterally SIJ Anterior Gapping Test Results + Comments bilaterally Slump Test Results - Distraction Test Results - Comments no change Corea/Quadrant Test Results + Comments R both, L R only; local Hip Special Tests JOHNNY Test Results + PT-OP-M Strength Start: 11/02/23 12:57 Freq: Status: Active Protocol: Document 11/02/23 13:47 NM (Rec: 11/02/23 14:36 NM [id number]) Trunk Strength Trunk Manual Muscle Testing Flexion 4 Good Extension 4 Good Rotation Left 4 Good Rotation Right 4 Good Lateral Flexion Left 4 Good Lateral Flexion Right 4- Good- Comments Pain with R rotation resisted B PSIS; pain with flexion Hip Strength Hip Manual Muscle Testing Right Flexion (L2) 4 Good Extension (S1) 3 Fair Abduction 4- Good- External Rotation 4 Good Internal Rotation 4- Good- Comments Back pain reproduced with resisted abduction and extension Left Flexion (L2) 4 Good Extension (S1) 3 Fair Abduction 4 Good Adduction 4 Good External Rotation 4 Good Internal Rotation 4- Good- Comments Back pain reproduced with extension Knee Strength Knee Manual Muscle Testing Right Flexion (S2) 4 Good Extension (L3) 4 Good Left Flexion (S2) 4 Good Extension (L3) 4 Good Ankle/Foot Strength Ankle and Foot Manual Muscle Testing Right Dorsiflexion (L4) 4 Good Plantarflexion (S1) 4 Good Comments full DF but increased sway Left Dorsiflexion (L4) 4 Good Plantarflexion (S1) 4 Good Comments full DF but increased sway PT-OP-Q Treatments Start: 11/02/23 12:57 Freq: Status: Active Protocol: Document 11/18/23 14:45 NM (Rec: 11/18/23 15:36 NM [id number]) Therapeutic Exercises Supine Exercises TrA activation Supine Exercise Name 1. w/ PPT and breathing, 2. BKFO, 3. august (small ROM) Side bilateral Equipment Used self tactile cues medial to ASIS for feedback, PT tactile/ verbal cues Reps/Minutes with breaths, 1. 1x10, 2. 1x10 ea, 2. 1x10 ea Comments improved awareness, good breathing; L harder stretching Supine Exercise Name piriformis Side bilateral Reps/Minutes 1x60 ea Other Exercises Side sit Other Exercise Name hip ER stretch w/ hip IR AROM (Z sit) Side bilateral Equipment Used stretching into fwd flexion Reps/Minutes 1x30 ea Comments pain free w/ stretch and active IR, L more limited than R into ER/IR quadruped Other Exercise Name hip ext (small range) Side bilateral Equipment Used dowel on back for tactile cue for neutral spine Reps/Minutes 1x10 ea, paired w/ breathing, core brace Comments challenging; cued belly button to spine, relax shoulders Manual Therapy Treatment Soft Tissue Mobilization lumbar/glutes/HS Body Location bilateral Lumbar paraspinals Mobilization Type Rolling,Sustained Pressure Intensity/Depth Moderate Body Position Prone Comments Pillow under hips. Increased tension and tightness of B paraspinals. No tenderness but tightness only. Reports muscle relaxation post soft tissue mobilization Joint Mobilizations L hip Direction lat, inf-lat Grade III Body Position Hooklying Reps/Duration 3x30 ea Comments Grade III based on pt tolerance, pain free. With IR and ER bias to improve hip rotation. Post manual: 20 deg ER, 38 deg IR R hip Direction lat, inf-lat Grade III Body Position Hooklying Reps/Duration 3x30 ea Comments Grade III based on pt tolerance. With ER and IR bias to improve hip rotation. Tolerated well, good feedback and reports no pain. Post manual: 30 deg ER, 20 deg IR Self-Care/Home Management Treatment Education Patient Education Home Exercise Program Other Education HEP: Z sit with hip IR PT-OP-T Assessment and Plan Start: 11/02/23 12:57 Freq: Status: Active Protocol: Document 11/18/23 14:45 NM (Rec: 11/18/23 15:36 NM [id number]) Physical Therapy Assessment Goals Four Impairment strength Impairment impaired glute strength Short Term Goal (STG) Pt will increase B hip extension and abduction strength to at least 4/5 MMT in order to demonstrate improved strength for exercise , running, and ADLs STG Duration 6 weeks Custodial Goal (LTG) Pt will increase B hip extension and abduction strength to at least 4+/5 MMT in order to demonstrate improved strength for exercise , running, and ADLs LTG Duration 12 weeks Three Impairment ROM Impairment R hip IR 15 deg Short Term Goal (STG) Pt will improve R hip IR to at least 20 deg in order to demonstrate improved hip mobility for squats and ADLs 11/18/23: r hip IR 20 deg STG Duration 6 weeks Custodial Goal (LTG) Pt will improve R hip IR to at least 25 deg in order to demonstrate improved hip mobility for squats and ADLs LTG Duration 12 weeks Two Impairment ROM Impairment L hip IR and ER 20 deg Short Term Goal (STG) Pt will improve L hip IR and ER to at least 25 deg in order to demonstrate improved hip mobility for squats and ADLs STG Duration 6 weeks Custodial Goal (LTG) Pt will improve L hip IR and ER to at least 30 deg in order to demonstrate improved hip mobility for squats and ADLs LTG Duration 12 weeks One Impairment function Impairment Oswestry 9/50 Custodial Goal (LTG) Pt will decrease Oswestry <9/ 50 in order to demonstrate improved QOL and activity tolerance LTG Duration 12 weeks Assessment Summary Assessment Pt tolerated session well. She demonstrates improved ability to brace core without breath- holding. Cued to maintain smaller range of motion with supine core exercises in order to maintain core bracing. Initiated quadruped hip extension for posterior chain strengthening with neutral spine. Pt able to perform pain free within small range of motion with abdominal bracing. Cues required for breathing coordination and yardstick as tactile cue for neutral spine. Pt progressed to Z sit ER stretch in shortened range with active hip IR. Only able to perform active IR if not in end range. Pain free for all hip mobility. Continued with hip mobilizations for improved B hip mobility. Pt met 1 STG regarding hip mobility today. Pt would benefit from skilled PT for body mechanics and lumbar/core strengthening, flexibility in order to improve symptom management and improve activity tolerance. Physical Therapy Plan Frequency and Duration Frequency of Treatment 1-2x/wk Duration of treatment (weeks) 12 Plan of Care Start Date 11/02/23 Plan of Care End Date 01/28/24 Therapeutic Interventions Therapeutic Interventions Balance Training,Coordination Training,Gait Training,Home Exercise Program,Joint Mobilizations,Manual Therapy, Neuromuscular Re-education, Orthotic/Prosthetic Management ,Patient/Caregiver Education, Self-Care/Home Management, Sensory Integration,Soft Tissue Mobilization,Taping, Therapeutic Activities, Therapeutic Exercises Modalities Cold Pack/Ice Massage,Electric Stimulation,Hot Packs, Ultrasound Next Visit Focus/Plan Next Note Type Treatment Note Next Visit Plan quad hip ext, progress core as able (trial ind[place]ian ball), pallof press, hip hinge w/ core brace (trial staggered vs regular) Next session: BKFO, breathing/ TrA with core, hip mob (do bilateral), hip hinge + staggered stance RDL, single leg bridge (if tolerated) vs step up, 1/2 kneel hip flexor with side reach Manual: STM to lumbar spine, glutes; hip mob, grade II mob of lumbar spine only
--- NOTE | 2023-11-24 17:48 | PT.OTN ---
Current Diagnoses Low back pain, unspecified (11/24/23) Weakness (11/24/23) Physical Therapy Treatment Note PT-OP-A Visit Information Start: 11/02/23 12:57 Freq: Status: Active Protocol: Document 11/24/23 14:37 NBM (Rec: 11/24/23 15:26 NBM [id number]) Out-Patient Physical Therapy Visit Information Visit Information Visit Type Treatment Note Visit Note 12 visits Visit Start Time 14:38 Visit Stop Time 15:20 Visit Number 11/30 Number of HIGH LIGHTER Visits 1 Evaluation Information Evaluation Date 11/02/23 PT-OP-B Current Condition Start: 11/02/23 12:57 Freq: Status: Active Protocol: Document 11/02/23 13:47 NM (Rec: 11/02/23 14:36 NM [id number]) Current Condition History of Current Condition Onset Date 2 months ago Current Complaints pain, glute weakness History of Current Condition Pt reports that she is having lower back pain at the bottom of her back. She reports that she has pain with sitting, which causes radiation up to the midback. She reports that her pain began about 2 months, unknown onset. She reports that stretching causes more pain (e.g. yoga like cat/cow, thread needle). She reports that she has pain with lifting (up to 200#), work out (e.g. squats, deadlifts), sleeping ( supine), sitting (extended feels better). She reports that the pain is episodic with increasing in frequency. She went to the ER in July due to pain in her buttocks; she states that they did not do any imaging, only did an anti- inflammatory injections/ lidocaine patches/muscle relaxers. No numbness/tingling , R sided tingling in foot. She also has L knee pain. 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 She was feeling good this morning but had to torque something today at work and can't figure out her body mechanics enough not to twist her back. I definitely feel better, especially with getting the techniques for stretching and actually doing it. Pain is both sides of spine towards outside 1-2/10 ( points to paraspinals at thoracolumbar junction). She's concentrating on using core more and thinks her breathing has gotten a little bit better . She used kitchen sink stretch today to help with back pain. Patient Reported Progress Improving PT-OP-E Functional Tests Start: 11/02/23 12:57 Freq: Status: Active Protocol: Document 11/02/23 13:47 NM (Rec: 11/02/23 14:36 NM [id number]) Functional Tests Squat Test Score 5 squats Comments increased tibial translation, R hip rot at hips, butt wink Other Forward Trunk Flexion Test Name of Test measured finger tip to floor Score 0 Comment able to touch floor; no pain w / flex, pain with return to ext PT-OP-F Manual Assessment Start: 11/02/23 12:57 Freq: Status: Active Protocol: Document 11/02/23 13:47 NM (Rec: 11/02/23 14:36 NM [id number]) Manual Assessments Soft Tissue Assessment Soft Tissue Mobility Assessment Pt has increased length of hamstrings. Increased tenderness along B paraspinals , R>L, and soft tissue restrictions of glutes/ piriformis. Joint Mobility Assessment Joint Mobility Assessment Overall hypomobility of lumbar spine with P-A springing of spinous processes. Decreased PROM of B hips, particulary IR . Right hip more limited than L hip. Pt also has L knee pain but full B knee ROM. PT-OP-G Mobility & Gait Start: 11/02/23 12:57 Freq: Status: Active Protocol: Document 11/02/23 13:47 NM (Rec: 11/02/23 14:36 NM [id number]) OP Gait Assessment Gait Gait Assistance Required: Independent Distance (Feet) 150 Assistive Devices Assistive Device None Gait Deviations General Gait Pattern Antalgic Factors Limiting Gait Function Factors Limiting Gait Function Decreased Activity Tolerance, Decreased Strength,Limited Range of Motion Comments Gait Comments Decreased trunk rotation PT-OP-H Neuro Start: 11/02/23 12:57 Freq: Status: Active Protocol: Document 11/02/23 13:47 NM (Rec: 11/02/23 14:36 NM [id number]) Sensation Evaluation Comments Summary Comments BLE intact to light touch sensation. Reports light tingling along posterior leg to posterior knee and occasionally to ankle PT-OP-J Posture/Palpation/Skin Start: 11/02/23 12:57 Freq: Status: Active Protocol: Document 11/02/23 13:47 NM (Rec: 11/02/23 14:36 NM [id number]) Posture Evaluation Position Standing Head/C-Spine Posture Forward Head L-Spine Posture Increased Lordosis Shoulder Posture (L) Forward,(R) Forward Scapula Posture (L) Protracted,(R) Protracted Arm Posture (L) Internally Rotated,(R) Internally Rotated Pelvis Posture Anteriorly Tilted Weight Distribution Weight Shifted Right Hip Posture (L) Externally Rotated,(R) Externally Rotated Knee Posture (L) Genu Valgus,(R) Genu Valgus Ankle/Foot Posture (L) Pronated,(R) Pronated Palpation Assessment Location lumbar spine Palpation Details Tightness of B paraspinals and glutes/piriformis (R>L) Tenderness of B PSIS (R>L) Pain with nutation but none with counternutation PT-OP-K Range of Motion Start: 11/02/23 12:57 Freq: Status: Active Protocol: Document 11/02/23 13:47 NM (Rec: 11/02/23 14:36 NM [id number]) Lumbar Spine Range of Motion Lumbar Spine Active Percentage Flexion 100 Extension 100 Lateral Flexion Left 100 Lateral Flexion Right 100 Comments L sided pain with extension at PSIS, return from flexion; B lateral flexion painful at muscles on either side moving into direction but felt on opposite side Hip Goniometric Range of Motion Hip Right Flexion w/Knee Flexed 120 Extension 10 Internal Rotation 15 External Rotation 35 Left Flexion w/Knee Flexed 120 Extension 10 Internal Rotation 20 External Rotation 20 Comments L hip flexion reproduces low back pain PT-OP-L Special Tests Start: 11/02/23 12:57 Freq: Status: Active Protocol: Document 11/02/23 13:47 NM (Rec: 11/02/23 14:36 NM [id number]) Special Tests Lumbar Spine Special Tests Active SLR Test Results + Comments symptoms improved with bracing SIJ Posterior Distraction Test Results + Comments bilaterally SIJ Thigh Thrust Test Results - Comments bilaterally SIJ Anterior Gapping Test Results + Comments bilaterally Slump Test Results - Distraction Test Results - Comments no change Corea/Quadrant Test Results + Comments R both, L R only; local Hip Special Tests [id number] Test Results + PT-OP-M Strength Start: 11/02/23 12:57 Freq: Status: Active Protocol: Document 11/02/23 13:47 NM (Rec: 11/02/23 14:36 NM [id number]) Trunk Strength Trunk Manual Muscle Testing Flexion 4 Good Extension 4 Good Rotation Left 4 Good Rotation Right 4 Good Lateral Flexion Left 4 Good Lateral Flexion Right 4- Good- Comments Pain with R rotation resisted B PSIS; pain with flexion Hip Strength Hip Manual Muscle Testing Right Flexion (L2) 4 Good Extension (S1) 3 Fair Abduction 4- Good- External Rotation 4 Good Internal Rotation 4- Good- Comments Back pain reproduced with resisted abduction and extension Left Flexion (L2) 4 Good Extension (S1) 3 Fair Abduction 4 Good Adduction 4 Good External Rotation 4 Good Internal Rotation 4- Good- Comments Back pain reproduced with extension Knee Strength Knee Manual Muscle Testing Right Flexion (S2) 4 Good Extension (L3) 4 Good Left Flexion (S2) 4 Good Extension (L3) 4 Good Ankle/Foot Strength Ankle and Foot Manual Muscle Testing Right Dorsiflexion (L4) 4 Good Plantarflexion (S1) 4 Good Comments full DF but increased sway Left Dorsiflexion (L4) 4 Good Plantarflexion (S1) 4 Good Comments full DF but increased sway PT-OP-Q Treatments Start: 11/02/23 12:57 Freq: Status: Active Protocol: Document 11/24/23 14:37 NBM (Rec: 11/24/23 15:26 NBM [id number]) Gym Equipment Therapeutic Ball 65 cm physioball Exercise Details 1. pelvic tilts 2. pelvic clocks 12, 6, 3, 9 3. CW/CCW 4 . alt march 5. LAQ Ball Size/Color green Body Position Sitting Reps/Duration 10x ea Comments initial cues for breathholding *changed to 55cm orange ball for alternating march for 90 /90 sitting. -Core more challenged on R stance leg than L w/ LAQ. Therapeutic Exercises Supine Exercises stretching Supine Exercise Name 1. trunk extension stretch on 65cm ball 2. piriformis stretch-not today Side bilateral Reps/Minutes 1x60 ea Other Exercises Side sit Other Exercise Name hip ER stretch w/ hip IR AROM (Z sit) Side bilateral Equipment Used stretching into fwd flexion Reps/Minutes 1x30 ea Comments cues for breath, pain free but tightness, L more limited than R into ER/IR Therapeutic Activity Therapeutic Activity body mechanics Name torqueing from kneel to simulate work w/ dowel Reps/Minutes 5' Comments Pt demos torqueing w/ long wrench today from tall kneeling w/ breathholding and is edu: to perform torqueing from 1/2 kneel w/ exhalation on effort and reports positive feedback for core engagement and low back protection. Manual Therapy Treatment Soft Tissue Mobilization paraspinals Body Location thoracolumbar B Mobilization Type Rolling,Strumming,Sustained Pressure,Trigger Point Release Intensity/Depth Moderate Body Position Prone Comments pillow support under hips and LEs, forehead resting on forearms. L>R tightness. PT-OP-T Assessment and Plan Start: 11/02/23 12:57 Freq: Status: Active Protocol: Document 11/24/23 14:37 [facility] (Rec: 11/24/23 15:26 [facility] [id number]) Physical Therapy Assessment Goals Four Impairment strength Impairment impaired glute strength Short Term Goal (STG) Pt will increase B hip extension and abduction strength to at least 4/5 MMT in order to demonstrate improved strength for exercise , running, and ADLs STG Duration 6 weeks Blanket Maker Goal (LTG) Pt will increase B hip extension and abduction strength to at least 4+/5 MMT in order to demonstrate improved strength for exercise , running, and ADLs LTG Duration 12 weeks Three Impairment ROM Impairment R hip IR 15 deg Short Term Goal (STG) Pt will improve R hip IR to at least 20 deg in order to demonstrate improved hip mobility for squats and ADLs 5/30/24: r hip IR 20 deg STG Duration 6 weeks Senior Living Goal (LTG) Pt will improve R hip IR to at least 25 deg in order to demonstrate improved hip mobility for squats and ADLs LTG Duration 12 weeks Two Impairment ROM Impairment L hip IR and ER 20 deg Short Term Goal (STG) Pt will improve L hip IR and ER to at least 25 deg in order to demonstrate improved hip mobility for squats and ADLs STG Duration 6 weeks Senior Living Goal (LTG) Pt will improve L hip IR and ER to at least 30 deg in order to demonstrate improved hip mobility for squats and ADLs LTG Duration 12 weeks One Impairment function Impairment Oswestry 9/50 Blanket Maker Goal (LTG) Pt will decrease Oswestry <9/ 50 in order to demonstrate improved QOL and activity tolerance LTG Duration 12 weeks Assessment Summary Assessment Pt presents today with 1-2/10 pain in thoracolumbar paraspinals bilaterally after torqueing instrument at work, unchanged end of session but pt reports improved thoracic rotation mobility EOS. Treatment focus on torqueing body mechanics for simulating work and on improving breathwork with core focus and stretching. Palpable tightness to thoracolumbar paraspinals improves with manual therapy R>L, with L>R tightness noted. Physical Therapy Plan Frequency and Duration Frequency of Treatment 1-2x/wk Duration of treatment (weeks) 12 Plan of Care Start Date 11/02/23 Plan of Care End Date 01/28/24 Therapeutic Interventions Therapeutic Interventions Balance Training,Coordination Training,Gait Training,Home Exercise Program,Joint Mobilizations,Manual Therapy, Neuromuscular Re-education, Orthotic/Prosthetic Management ,Patient/Caregiver Education, Self-Care/Home Management, Sensory Integration,Soft Tissue Mobilization,Taping, Therapeutic Activities, Therapeutic Exercises Modalities Cold Pack/Ice Massage,Electric Stimulation,Hot Packs, Ultrasound Next Visit Focus/Plan Next Note Type Treatment Note Next Visit Plan quad hip ext, progress core as able (trial scottish ball), pallof press, hip hinge w/ core brace (trial staggered vs regular) Next session: BKFO, breathing/ TrA with core, hip mob (do bilateral), hip hinge + staggered stance RDL, single leg bridge (if tolerated) vs step up, 1/2 kneel hip flexor with side reach Manual: STM to lumbar spine, glutes; hip mob, grade II mob of lumbar spine only
--- NOTE | 2023-12-01 15:28 | PT.OTN ---
Current Diagnoses Low back pain, unspecified (12/01/23) Weakness (12/01/23) Physical Therapy Treatment Note PT-OP-A Visit Information Start: 11/02/23 12:57 Freq: Status: Active Protocol: Document 12/01/23 14:35 NM (Rec: 12/01/23 15:28 NM [id number]) Out-Patient Physical Therapy Visit Information Visit Information Visit Type Progress Note Visit Note 12 visits Visit Start Time 14:35 Visit Stop Time 15:15 Visit Number 01/30 PT-OP-B Current Condition Start: 11/02/23 12:57 Freq: Status: Active Protocol: Document 11/02/23 13:47 NM (Rec: 11/02/23 14:36 NM [id number]) Current Condition History of Current Condition Onset Date 2 months ago Current Complaints pain, glute weakness History of Current Condition Pt reports that she is having lower back pain at the bottom of her back. She reports that she has pain with sitting, which causes radiation up to the midback. She reports that her pain began about 2 months, unknown onset. She reports that stretching causes more pain (e.g. yoga like cat/cow, thread needle). She reports that she has pain with lifting (up to 200#), work out (e.g. squats, deadlifts), sleeping ( supine), sitting (extended feels better). She reports that the pain is episodic with increasing in frequency. She went to the ER in July due to pain in her buttocks; she states that they did not do any imaging, only did an anti- inflammatory injections/ lidocaine patches/muscle relaxers. No numbness/tingling , R sided tingling in foot. She also has L knee pain. 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 Reports that when she goes to work, feels like her progress is undone. She has been trying to implement breath work and body mechanics. She reports pain is less frequent. Reports that her hip mobility has not improved. PT-OP-E Functional Tests Start: 11/02/23 12:57 Freq: Status: Active Protocol: Document 11/02/23 13:47 NM (Rec: 11/02/23 14:36 NM [id number]) Functional Tests Squat Test Score 5 squats Comments increased tibial translation, R hip rot at hips, butt wink Other Forward Trunk Flexion Test Name of Test measured finger tip to floor Score 0 Comment able to touch floor; no pain w / flex, pain with return to ext PT-OP-F Manual Assessment Start: 11/02/23 12:57 Freq: Status: Active Protocol: Document 11/02/23 13:47 NM (Rec: 11/02/23 14:36 NM [id number]) Manual Assessments Soft Tissue Assessment Soft Tissue Mobility Assessment Pt has increased length of hamstrings. Increased tenderness along B paraspinals , R>L, and soft tissue restrictions of glutes/ piriformis. Joint Mobility Assessment Joint Mobility Assessment Overall hypomobility of lumbar spine with P-A springing of spinous processes. Decreased PROM of B hips, particulary IR . Right hip more limited than L hip. Pt also has L knee pain but full B knee ROM. PT-OP-G Mobility & Gait Start: 11/02/23 12:57 Freq: Status: Active Protocol: Document 11/02/23 13:47 NM (Rec: 11/02/23 14:36 NM [id number]) OP Gait Assessment Gait Gait Assistance Required: Independent Distance (Feet) 150 Assistive Devices Assistive Device None Gait Deviations General Gait Pattern Antalgic Factors Limiting Gait Function Factors Limiting Gait Function Decreased Activity Tolerance, Decreased Strength,Limited Range of Motion Comments Gait Comments Decreased trunk rotation PT-OP-H Neuro Start: 11/02/23 12:57 Freq: Status: Active Protocol: Document 11/02/23 13:47 NM (Rec: 11/02/23 14:36 NM [id number]) Sensation Evaluation Comments Summary Comments BLE intact to light touch sensation. Reports light tingling along posterior leg to posterior knee and occasionally to ankle PT-OP-J Posture/Palpation/Skin Start: 11/02/23 12:57 Freq: Status: Active Protocol: Document 11/02/23 13:47 NM (Rec: 11/02/23 14:36 NM [id number]) Posture Evaluation Position Standing Head/C-Spine Posture Forward Head L-Spine Posture Increased Lordosis Shoulder Posture (L) Forward,(R) Forward Scapula Posture (L) Protracted,(R) Protracted Arm Posture (L) Internally Rotated,(R) Internally Rotated Pelvis Posture Anteriorly Tilted Weight Distribution Weight Shifted Right Hip Posture (L) Externally Rotated,(R) Externally Rotated Knee Posture (L) Genu Valgus,(R) Genu Valgus Ankle/Foot Posture (L) Pronated,(R) Pronated Palpation Assessment Location lumbar spine Palpation Details Tightness of B paraspinals and glutes/piriformis (R>L) Tenderness of B PSIS (R>L) Pain with nutation but none with counternutation PT-OP-K Range of Motion Start: 11/02/23 12:57 Freq: Status: Active Protocol: Document 12/01/23 14:35 NM (Rec: 12/01/23 15:28 NM [id number]) Lumbar Spine Range of Motion Lumbar Spine Active Percentage Flexion 100 Extension 100 Lateral Flexion Left 100 Lateral Flexion Right 100 Comments L sided pain with extension at PSIS, return from flexion; B lateral flexion painful at muscles on either side moving into direction but felt on opposite side Hip Goniometric Range of Motion Hip Right Flexion w/Knee Flexed 120 Extension 10 Internal Rotation 15 External Rotation 35 Comments 12/01/23: 35 deg er, 28 deg IR Left Flexion w/Knee Flexed 120 Extension 10 Internal Rotation 20 External Rotation 20 Comments L hip flexion reproduces low back pain 12/01/23: IR 40, 25 ER PT-OP-L Special Tests Start: 11/02/23 12:57 Freq: Status: Active Protocol: Document 11/02/23 13:47 NM (Rec: 11/02/23 14:36 NM [id number]) Special Tests Lumbar Spine Special Tests Active SLR Test Results + Comments symptoms improved with bracing SIJ Posterior Distraction Test Results + Comments bilaterally SIJ Thigh Thrust Test Results - Comments bilaterally SIJ Anterior Gapping Test Results + Comments bilaterally Slump Test Results - Distraction Test Results - Comments no change Corea/Quadrant Test Results + Comments R both, L R only; local Hip Special Tests JOHNNY Test Results + PT-OP-M Strength Start: 11/02/23 12:57 Freq: Status: Active Protocol: Document 12/01/23 14:35 NM (Rec: 12/01/23 15:28 NM [id number]) Hip Strength Hip Manual Muscle Testing Right Flexion (L2) 4 Good Extension (S1) 3 Fair Abduction 4- Good- External Rotation 4 Good Internal Rotation 4- Good- Comments Back pain reproduced with resisted abduction and extension 12/01/23: 4-/5 ext, 4/5 abd Left Flexion (L2) 4 Good Extension (S1) 3 Fair Abduction 4 Good Adduction 4 Good External Rotation 4 Good Internal Rotation 4- Good- Comments Back pain reproduced with extension 12/01/23: 4-/5 ext, 4/5 abd PT-OP-Q Treatments Start: 11/02/23 12:57 Freq: Status: Active Protocol: Document 12/01/23 14:35 NM (Rec: 12/01/23 15:28 NM [id number]) Therapeutic Exercises Supine Exercises Bridging Supine Exercise Name single leg bridge Side bilateral Reps/Minutes 10 (R easier) Comments good breathwork today; cued for head/UT relaxation to prevent arch w/ back stretching Supine Exercise Name HS dynamic stretch Side bilateral Reps/Minutes 60 ea Comments feels good Standing Exercises lateral touch down Standing Exercise Name glute med + hip hike at end range Side bilateral Equipment Used 4 step, 1 hand support for balance Reps/Minutes 10 Comments cued breathwork, positive feedback at glute med squat Standing Exercise Name 1. body weight, 2. goblet Side bilateral Resistance 2. 5#> 10# Reps/Minutes 1. 10, 2. Comments for hip mobility; cued slight scap retract; good breathwork, core brace Other Exercises 1/2 kneel Other Exercise Name thoracic rotation Side bilateral Reps/Minutes 2x10 Comments tighter on R side quadruped Other Exercise Name cat camel with A/P full ext of spine Resistance level 1 band Reps/Minutes 10 AROM, 10 cat camel PT-OP-T Assessment and Plan Start: 11/02/23 12:57 Freq: Status: Active Protocol: Document 12/01/23 14:35 NM (Rec: 12/01/23 15:28 NM [id number]) Physical Therapy Assessment Goals Four Impairment strength Impairment impaired glute strength Short Term Goal (STG) Pt will increase B hip extension and abduction strength to at least 4/5 MMT in order to demonstrate improved strength for exercise , running, and ADLs 12/01/23: 4-/5 ext, 4/5 abd STG Duration 6 weeks 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 (LTG) Pt will increase B hip extension and abduction strength to at least 4+/5 MMT in order to demonstrate improved strength for exercise , running, and ADLs LTG Duration 12 weeks Three Impairment ROM Impairment R hip IR 15 deg Short Term Goal (STG) Pt will improve R hip IR to at least 20 deg in order to demonstrate improved hip mobility for squats and ADLs 11/18/23: r hip IR 20 deg 12/01/23: 35 deg er, 28 deg IR STG Duration 6 weeks MET [employer] Manager Goal (LTG) Pt will improve R hip IR to at least 25 deg in order to demonstrate improved hip mobility for squats and ADLs 12/01/23: 35 deg er, 28 deg IR LTG Duration 12 weeks MET Two Impairment ROM Impairment L hip IR and ER 20 deg Short Term Goal (STG) Pt will improve L hip IR and ER to at least 25 deg in order to demonstrate improved hip mobility for squats and ADLs 12/01/23: IR 40, 25 ER STG Duration 6 weeks MET [employer] Manager Goal (LTG) Pt will improve L hip IR and ER to at least 30 deg in order to demonstrate improved hip mobility for squats and ADLs LTG Duration 12 weeks One Impairment function Impairment Oswestry 9/50 [facility] Goal (LTG) Pt will decrease Oswestry <9/ 50 in order to demonstrate improved QOL and activity tolerance LTG Duration 12 weeks Assessment Summary Assessment Pt tolerated session well. She is progressing well toward goals. Demonstrates improved hip mobility bilaterally. Pt continues to respond best to trunk mobility exercises and glute strengthening. Pt demonstrates improved breathing and core bracing during all exercises, improved consciousness of body mechanics. Continued with glute strengthening, adding lateral hip touch down with hip hike to target both glute medius and QL relaxation. Physical Therapy Plan Frequency and Duration Frequency of Treatment 1-2x/wk Duration of treatment (weeks) 12 Plan of Care Start Date 11/02/23 Plan of Care End Date 01/28/24 Therapeutic Interventions Therapeutic Interventions Balance Training,Coordination Training,Gait Training,Home Exercise Program,Joint Mobilizations,Manual Therapy, Neuromuscular Re-education, Orthotic/Prosthetic Management ,Patient/Caregiver Education, Self-Care/Home Management, Sensory Integration,Soft Tissue Mobilization,Taping, Therapeutic Activities, Therapeutic Exercises Modalities Cold Pack/Ice Massage,Electric Stimulation,Hot Packs, Ultrasound Next Visit Focus/Plan Next Note Type Treatment Note Next Visit Plan hip ext and abd strengthening; hip hinge + staggered stance deadlift, add functional hip IR/ER to deadlift/airplane, plank and side plank (add hips ) Manual: STM to lumbar spine, glutes; hip mob, grade II mob of lumbar spine only
--- NOTE | 2023-12-31 14:46 | PT.OTN ---
Current Diagnoses Low back pain, unspecified (12/31/23) Weakness (12/31/23) Physical Therapy Treatment Note PT-OP-A Visit Information Start: 11/02/23 12:57 Freq: Status: Active Protocol: Document 12/31/23 13:12 NBM (Rec: 12/31/23 14:46 NBM [id number]) Out-Patient Physical Therapy Visit Information Visit Information Visit Type Treatment Note Visit Note 12 visits Possible D/C 01/19/24. Visit Start Time 13:08 Visit Stop Time 14:00 Visit Number 04/01 Number of DISK RECORDIST Visits 2 Evaluation Information Evaluation Date 11/02/23 PT-OP-B Current Condition Start: 11/02/23 12:57 Freq: Status: Active Protocol: Document 11/02/23 13:47 NM (Rec: 11/02/23 14:36 NM [id number]) Current Condition History of Current Condition Onset Date 2 months ago Current Complaints pain, glute weakness History of Current Condition Pt reports that she is having lower back pain at the bottom of her back. She reports that she has pain with sitting, which causes radiation up to the midback. She reports that her pain began about 2 months, unknown onset. She reports that stretching causes more pain (e.g. yoga like cat/cow, thread needle). She reports that she has pain with lifting (up to 200#), work out (e.g. squats, deadlifts), sleeping ( supine), sitting (extended feels better). She reports that the pain is episodic with increasing in frequency. She went to the ER in July due to pain in her buttocks; she states that they did not do any imaging, only did an anti- inflammatory injections/ lidocaine patches/muscle relaxers. No numbness/tingling , R sided tingling in foot. She also has L knee pain. 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 L hip has been progressiely worse but feels better with stretching - if she does any out of the ordinary movement like with her job she has to stop and stretch it out because it gets tender. Better overall and plans to discharge after 12th visit due to scheduling, finances and progress. PT-OP-E Functional Tests Start: 11/02/23 12:57 Freq: Status: Active Protocol: Document 11/02/23 13:47 NM (Rec: 11/02/23 14:36 NM [id number]) Functional Tests Squat Test Score 5 squats Comments increased tibial translation, R hip rot at hips, butt wink Other Forward Trunk Flexion Test Name of Test measured finger tip to floor Score 0 Comment able to touch floor; no pain w / flex, pain with return to ext PT-OP-F Manual Assessment Start: 11/02/23 12:57 Freq: Status: Active Protocol: Document 11/02/23 13:47 NM (Rec: 11/02/23 14:36 NM [id number]) Manual Assessments Soft Tissue Assessment Soft Tissue Mobility Assessment Pt has increased length of hamstrings. Increased tenderness along B paraspinals , R>L, and soft tissue restrictions of glutes/ piriformis. Joint Mobility Assessment Joint Mobility Assessment Overall hypomobility of lumbar spine with P-A springing of spinous processes. Decreased PROM of B hips, particulary IR . Right hip more limited than L hip. Pt also has L knee pain but full B knee ROM. PT-OP-G Mobility & Gait Start: 11/02/23 12:57 Freq: Status: Active Protocol: Document 11/02/23 13:47 NM (Rec: 11/02/23 14:36 NM [id number]) OP Gait Assessment Gait Gait Assistance Required: Independent Distance (Feet) 150 Assistive Devices Assistive Device None Gait Deviations General Gait Pattern Antalgic Factors Limiting Gait Function Factors Limiting Gait Function Decreased Activity Tolerance, Decreased Strength,Limited Range of Motion Comments Gait Comments Decreased trunk rotation PT-OP-H Neuro Start: 11/02/23 12:57 Freq: Status: Active Protocol: Document 11/02/23 13:47 NM (Rec: 11/02/23 14:36 NM [id number]) Sensation Evaluation Comments Summary Comments BLE intact to light touch sensation. Reports light tingling along posterior leg to posterior knee and occasionally to ankle PT-OP-J Posture/Palpation/Skin Start: 11/02/23 12:57 Freq: Status: Active Protocol: Document 11/02/23 13:47 NM (Rec: 11/02/23 14:36 NM [id number]) Posture Evaluation Position Standing Head/C-Spine Posture Forward Head L-Spine Posture Increased Lordosis Shoulder Posture (L) Forward,(R) Forward Scapula Posture (L) Protracted,(R) Protracted Arm Posture (L) Internally Rotated,(R) Internally Rotated Pelvis Posture Anteriorly Tilted Weight Distribution Weight Shifted Right Hip Posture (L) Externally Rotated,(R) Externally Rotated Knee Posture (L) Genu Valgus,(R) Genu Valgus Ankle/Foot Posture (L) Pronated,(R) Pronated Palpation Assessment Location lumbar spine Palpation Details Tightness of B paraspinals and glutes/piriformis (R>L) Tenderness of B PSIS (R>L) Pain with nutation but none with counternutation PT-OP-K Range of Motion Start: 11/02/23 12:57 Freq: Status: Active Protocol: Document 12/01/23 14:35 NM (Rec: 12/01/23 15:28 NM [id number]) Lumbar Spine Range of Motion Lumbar Spine Active Percentage Flexion 100 Extension 100 Lateral Flexion Left 100 Lateral Flexion Right 100 Comments L sided pain with extension at PSIS, return from flexion; B lateral flexion painful at muscles on either side moving into direction but felt on opposite side Hip Goniometric Range of Motion Hip Right Flexion w/Knee Flexed 120 Extension 10 Internal Rotation 15 External Rotation 35 Comments 12/01/23: 35 deg er, 28 deg IR Left Flexion w/Knee Flexed 120 Extension 10 Internal Rotation 20 External Rotation 20 Comments L hip flexion reproduces low back pain 12/01/23: IR 40, 25 ER PT-OP-L Special Tests Start: 11/02/23 12:57 Freq: Status: Active Protocol: Document 11/02/23 13:47 NM (Rec: 11/02/23 14:36 NM [id number]) Special Tests Lumbar Spine Special Tests Active SLR Test Results + Comments symptoms improved with bracing SIJ Posterior Distraction Test Results + Comments bilaterally SIJ Thigh Thrust Test Results - Comments bilaterally SIJ Anterior Gapping Test Results + Comments bilaterally Slump Test Results - Distraction Test Results - Comments no change Corea/Quadrant Test Results + Comments R both, L R only; local Hip Special Tests [id number] Test Results + PT-OP-M Strength Start: 11/02/23 12:57 Freq: Status: Active Protocol: Document 12/01/23 14:35 NM (Rec: 12/01/23 15:28 NM [id number]) Hip Strength Hip Manual Muscle Testing Right Flexion (L2) 4 Good Extension (S1) 3 Fair Abduction 4- Good- External Rotation 4 Good Internal Rotation 4- Good- Comments Back pain reproduced with resisted abduction and extension 12/01/23: 4-/5 ext, 4/5 abd Left Flexion (L2) 4 Good Extension (S1) 3 Fair Abduction 4 Good Adduction 4 Good External Rotation 4 Good Internal Rotation 4- Good- Comments Back pain reproduced with extension 12/01/23: 4-/5 ext, 4/5 abd PT-OP-Q Treatments Start: 11/02/23 12:57 Freq: Status: Active Protocol: Document 12/31/23 13:12 NBM (Rec: 12/31/23 14:46 NBM [id number]) Therapeutic Exercises Prone Exercises Hip IR/ER Prone Exercise Name knee flexed to 90deg Side bilateral Resistance 4# AW Reps/Minutes 1. AROM x 10 ea 2. x10 ea w/ 4 # Comments pain-free, R>L tightness plank Prone Exercise Name core strength Equipment Used mat on floor Reps/Minutes x60s Comments no cues for form needed child's pose Prone Exercise Name fwd/lat Side bilateral Equipment Used mat on floor Reps/Minutes x30s ea Comments R>L low back tightness reported Sidelying Exercises side plank Side bilateral Equipment Used yoga mat Reps/Minutes 2x30s ea Comments L s/l more challenging, initial cue for form. Standing Exercises Deadlift Standing Exercise Name 1.staggered stance +hip hinge 2. hip hinge + functional hip IR/ER Side bilateral Resistance 2. added to HEP Equipment Used handrail for UE support prn Reps/Minutes 1. 10# 2. 10#x4 w/ ER >5#x10 ER, 0#IR x10 Comments 2. L hip ext>R challenging . Pt cued to reset form each rep humbling lateral touch down Standing Exercise Name next session squat Standing Exercise Name 1. body weight - not today 2. goblet Side bilateral Resistance 2. 10# Reps/Minutes 2.10 Comments for hip mobility; cue for hip hinge end range; good breathwork Kitchen sink stretch Standing Exercise Name after Side bilateral Equipment Used handrail Reps/Minutes 2x 1min Comments pos feedback response Other Exercises quadruped Other Exercise Name 1. cat camel with A/P full ext of spine 2.Thread needle Resistance level 1 band around waist anchored in hands Reps/Minutes 1.10 AROM, 10 cat camel 2. x5 AROM, 30 SH Manual Therapy Treatment Soft Tissue Mobilization lumbar/glutes/HS Body Location L glutes and L>R Lumbar paraspinals Mobilization Type Rolling,Sustained Pressure Intensity/Depth Moderate Body Position Prone Comments Pillow under hips and LEs. Increased tension and tightness of B glutes and paraspinals L>R. No tenderness but tightness only. Joint Mobilizations L hip Direction lat, inf-lat Grade II Body Position Hooklying Reps/Duration 2x90 ea Comments pain free. With IR and ER bias to improve hip rotation. PT-OP-T Assessment and Plan Start: 11/02/23 12:57 Freq: Status: Active Protocol: Document 12/31/23 13:12 [facility] (Rec: 12/31/23 14:46 [facility] [id number]) Physical Therapy Assessment Goals Four Impairment strength Impairment impaired glute strength Short Term Goal (STG) Pt will increase B hip extension and abduction strength to at least 4/5 MMT in order to demonstrate improved strength for exercise , running, and ADLs 12/01/23: 4-/5 ext, 4/5 abd STG Duration 6 weeks PROGRESSING Jail Goal (LTG) Pt will increase B hip extension and abduction strength to at least 4+/5 MMT in order to demonstrate improved strength for exercise , running, and ADLs LTG Duration 12 weeks Three Impairment ROM Impairment R hip IR 15 deg Short Term Goal (STG) Pt will improve R hip IR to at least 20 deg in order to demonstrate improved hip mobility for squats and ADLs 11/18/23: r hip IR 20 deg 12/01/23: 35 deg er, 28 deg IR STG Duration 6 weeks MET Jail Goal (LTG) Pt will improve R hip IR to at least 25 deg in order to demonstrate improved hip mobility for squats and ADLs 12/01/23: 35 deg er, 28 deg IR LTG Duration 12 weeks MET Two Impairment ROM Impairment L hip IR and ER 20 deg Short Term Goal (STG) Pt will improve L hip IR and ER to at least 25 deg in order to demonstrate improved hip mobility for squats and ADLs 12/01/23: IR 40, 25 ER STG Duration 6 weeks MET Jail Goal (LTG) Pt will improve L hip IR and ER to at least 30 deg in order to demonstrate improved hip mobility for squats and ADLs LTG Duration 12 weeks One Impairment function Impairment Oswestry 9/50 Jail Goal (LTG) Pt will decrease Oswestry <9/ 50 in order to demonstrate improved QOL and activity tolerance LTG Duration 12 weeks Assessment Summary Assessment Treatment focus on core activation w/ hip and thoracic mobility ex's and gluteal strengthening. Adulfa presents w/ 4/10 L knee pain which improves to 1/10 for both knee and hip pain end of session. L knee pain improves particularly with deadlifts w/ function hip ER/IR exercises; initial cues needed for excessive hip rotation w/ LE extension - added to HEP. Pt improves forearm plank hold from 30s to 60s today with no cues for breathholding. Palpable tension to L gluteal and lumbar paraspinal muscles improves with manual therapy. Per conversation w/ pt and evaluating PT, Assistant Professor Of Radiology notified to cancel pt's remaining appts w/ DISK RECORDIST and keep 01/18 appt w/ PT only at his time in preparation for possible discharge. Physical Therapy Plan Frequency and Duration Frequency of Treatment 1-2x/wk Duration of treatment (weeks) 12 Plan of Care Start Date 11/02/23 Plan of Care End Date 01/28/24 Therapeutic Interventions Therapeutic Interventions Balance Training,Coordination Training,Gait Training,Home Exercise Program,Joint Mobilizations,Manual Therapy, Neuromuscular Re-education, Orthotic/Prosthetic Management ,Patient/Caregiver Education, Self-Care/Home Management, Sensory Integration,Soft Tissue Mobilization,Taping, Therapeutic Activities, Therapeutic Exercises Modalities Cold Pack/Ice Massage,Electric Stimulation,Hot Packs, Ultrasound Next Visit Focus/Plan Next Note Type Treatment Note Next Visit Plan Possible D/C 01/19/24. POC: hip ext and abd strengthening; kickstand; hip hinge + staggered stance deadlift, add functional hip IR/ER to deadlift/airplane, plank and side plank (add hips ) Manual: STM to lumbar spine, glutes; hip mob, grade II mob of lumbar spine only
--- NOTE | 2024-01-19 15:18 | PT.OTN ---
Current Diagnoses Low back pain, unspecified (01/19/24) Weakness (01/19/24) Physical Therapy Treatment Note PT-OP-A Visit Information Start: 11/02/23 12:57 Freq: Status: Active Protocol: Document 01/19/24 14:33 NM (Rec: 01/19/24 15:18 NM [id number]) Out-Patient Physical Therapy Visit Information Visit Information Visit Type Progress Note Visit Note 12 visits Possible D/C 01/19/24. Visit Start Time 14:33 Visit Stop Time 15:13 Visit Number 05/02 Evaluation Information Evaluation Date 11/02/23 PT-OP-B Current Condition Start: 11/02/23 12:57 Freq: Status: Active Protocol: Document 11/02/23 13:47 NM (Rec: 11/02/23 14:36 NM [id number]) Current Condition History of Current Condition Onset Date 2 months ago Current Complaints pain, glute weakness History of Current Condition Pt reports that she is having lower back pain at the bottom of her back. She reports that she has pain with sitting, which causes radiation up to the midback. She reports that her pain began about 2 months, unknown onset. She reports that stretching causes more pain (e.g. yoga like cat/cow, thread needle). She reports that she has pain with lifting (up to 200#), work out (e.g. squats, deadlifts), sleeping ( supine), sitting (extended feels better). She reports that the pain is episodic with increasing in frequency. She went to the ER in July due to pain in her buttocks; she states that they did not do any imaging, only did an anti- inflammatory injections/ lidocaine patches/muscle relaxers. No numbness/tingling , R sided tingling in foot. She also has L knee pain. 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 Her back feels tight because lifting heavy weights at work. States that her knee pain had improved with hip mobility. Pt has no concerns about PT and wants to d/c today. States doing well enough and has all the skills to continue. Very busy upcoming schedule with work so not going to be able to attend very many future sessions any way. Reports did back squats for the first time today without any back pain, has started back to gym. PT-OP-E Functional Tests Start: 11/02/23 12:57 Freq: Status: Active Protocol: Document 11/02/23 13:47 NM (Rec: 11/02/23 14:36 NM [id number]) Functional Tests Squat Test Score 5 squats Comments increased tibial translation, R hip rot at hips, butt wink Other Forward Trunk Flexion Test Name of Test measured finger tip to floor Score 0 Comment able to touch floor; no pain w / flex, pain with return to ext PT-OP-F Manual Assessment Start: 11/02/23 12:57 Freq: Status: Active Protocol: Document 11/02/23 13:47 NM (Rec: 11/02/23 14:36 NM [id number]) Manual Assessments Soft Tissue Assessment Soft Tissue Mobility Assessment Pt has increased length of hamstrings. Increased tenderness along B paraspinals , R>L, and soft tissue restrictions of glutes/ piriformis. Joint Mobility Assessment Joint Mobility Assessment Overall hypomobility of lumbar spine with P-A springing of spinous processes. Decreased PROM of B hips, particulary IR . Right hip more limited than L hip. Pt also has L knee pain but full B knee ROM. PT-OP-G Mobility & Gait Start: 11/02/23 12:57 Freq: Status: Active Protocol: Document 11/02/23 13:47 NM (Rec: 11/02/23 14:36 NM [id number]) OP Gait Assessment Gait Gait Assistance Required: Independent Distance (Feet) 150 Assistive Devices Assistive Device None Gait Deviations General Gait Pattern Antalgic Factors Limiting Gait Function Factors Limiting Gait Function Decreased Activity Tolerance, Decreased Strength,Limited Range of Motion Comments Gait Comments Decreased trunk rotation PT-OP-H Neuro Start: 11/02/23 12:57 Freq: Status: Active Protocol: Document 11/02/23 13:47 NM (Rec: 11/02/23 14:36 NM [id number]) Sensation Evaluation Comments Summary Comments BLE intact to light touch sensation. Reports light tingling along posterior leg to posterior knee and occasionally to ankle PT-OP-J Posture/Palpation/Skin Start: 11/02/23 12:57 Freq: Status: Active Protocol: Document 11/02/23 13:47 NM (Rec: 11/02/23 14:36 NM [id number]) Posture Evaluation Position Standing Head/C-Spine Posture Forward Head L-Spine Posture Increased Lordosis Shoulder Posture (L) Forward,(R) Forward Scapula Posture (L) Protracted,(R) Protracted Arm Posture (L) Internally Rotated,(R) Internally Rotated Pelvis Posture Anteriorly Tilted Weight Distribution Weight Shifted Right Hip Posture (L) Externally Rotated,(R) Externally Rotated Knee Posture (L) Genu Valgus,(R) Genu Valgus Ankle/Foot Posture (L) Pronated,(R) Pronated Palpation Assessment Location lumbar spine Palpation Details Tightness of B paraspinals and glutes/piriformis (R>L) Tenderness of B PSIS (R>L) Pain with nutation but none with counternutation PT-OP-K Range of Motion Start: 11/02/23 12:57 Freq: Status: Active Protocol: Document 01/19/24 14:33 NM (Rec: 01/19/24 15:18 NM [id number]) Lumbar Spine Range of Motion Lumbar Spine Active Percentage Flexion 100 Extension 100 Lateral Flexion Left 100 Lateral Flexion Right 100 Comments L sided pain with extension at PSIS, return from flexion; B lateral flexion painful at muscles on either side moving into direction but felt on opposite side 01/19/24: 100% for all, no pain Hip Goniometric Range of Motion Hip Right Flexion w/Knee Flexed 120 Extension 10 Internal Rotation 30 External Rotation 40 Comments 12/01/23: 35 deg er, 28 deg IR 01/19/24: IR 30 deg, ER 40 deg Left Flexion w/Knee Flexed 120 Extension 10 Internal Rotation 35 External Rotation 35 Comments L hip flexion reproduces low back pain 12/01/23: IR 40, 25 ER 01/19/24: 35 deg IR and ER PT-OP-L Special Tests Start: 11/02/23 12:57 Freq: Status: Active Protocol: Document 11/02/23 13:47 NM (Rec: 11/02/23 14:36 NM [id number]) Special Tests Lumbar Spine Special Tests Active SLR Test Results + Comments symptoms improved with bracing SIJ Posterior Distraction Test Results + Comments bilaterally SIJ Thigh Thrust Test Results - Comments bilaterally SIJ Anterior Gapping Test Results + Comments bilaterally Slump Test Results - Distraction Test Results - Comments no change Corea/Quadrant Test Results + Comments R both, L R only; local Hip Special Tests JOHNNY Test Results + PT-OP-M Strength Start: 11/02/23 12:57 Freq: Status: Active Protocol: Document 01/19/24 14:33 NM (Rec: 01/19/24 15:18 NM [id number]) Trunk Strength Trunk Manual Muscle Testing Flexion 5 Normal Extension 5 Normal Rotation Left 5 Normal Rotation Right 5 Normal Lateral Flexion Left 5 Normal Lateral Flexion Right 5 Normal Comments Pain with R rotation resisted B PSIS; pain with flexion 01/19/24: 5/5 Hip Strength Hip Manual Muscle Testing Right Flexion (L2) 4+ Good+ Extension (S1) 4+ Good+ Abduction 4+ Good+ External Rotation 4+ Good+ Internal Rotation 4+ Good+ Comments Back pain reproduced with resisted abduction and extension 01/19/24: 4+/5 for ext, abd; no back pain Left Flexion (L2) 4+ Good+ Extension (S1) 4+ Good+ Abduction 4+ Good+ Adduction 4+ Good+ External Rotation 4+ Good+ Internal Rotation 4+ Good+ Comments Back pain reproduced with extension 12/01/23: 4-/5 ext, 4/5 abd 01/19/24: 4+/5 for ext, abd; no back pain PT-OP-Q Treatments Start: 11/02/23 12:57 Freq: Status: Active Protocol: Document 01/19/24 14:33 NM (Rec: 01/19/24 15:18 NM [id number]) Therapeutic Exercises Prone Exercises cobra Prone Exercise Name prone extension press up Side bilateral Reps/Minutes 2x30 Comments from child pose child's pose Prone Exercise Name fwd/lat Side bilateral Equipment Used mat on floor Reps/Minutes x30s ea Other Exercises 1/2 kneel Other Exercise Name hip flexor and QL stretch Side bilateral Reps/Minutes 10x5 ea side Comments for QL; reports reduction in symptoms quadruped Other Exercise Name 1. thread needle, 2. hip ext, 3. hip abd, 4. bear plank Reps/Minutes 1. 5 ea side, 2-3. 10, 4. 30 hold, then 30 crawl Comments cued core stability w/o hip rotation PT-OP-T Assessment and Plan Start: 11/02/23 12:57 Freq: Status: Active Protocol: Document 01/19/24 14:33 NM (Rec: 01/19/24 15:18 NM [id number]) Physical Therapy Assessment Goals Four Impairment strength Impairment impaired glute strength Short Term Goal (STG) Pt will increase B hip extension and abduction strength to at least 4/5 MMT in order to demonstrate improved strength for exercise , running, and ADLs 12/01/23: 4-/5 ext, 4/5 abd STG Duration 6 weeks PROGRESSING Senior Care Goal (LTG) Pt will increase B hip extension and abduction strength to at least 4+/5 MMT in order to demonstrate improved strength for exercise , running, and ADLs 01/19/24: 4+/5 hip ext and abd LTG Duration 12 weeks MET Three Impairment ROM Impairment R hip IR 15 deg Short Term Goal (STG) Pt will improve R hip IR to at least 20 deg in order to demonstrate improved hip mobility for squats and ADLs 11/18/23: r hip IR 20 deg 12/01/23: 35 deg er, 28 deg IR STG Duration 6 weeks MET Monogram Operator Goal (LTG) Pt will improve R hip IR to at least 25 deg in order to demonstrate improved hip mobility for squats and ADLs 12/01/23: 35 deg er, 28 deg IR LTG Duration 12 weeks MET Two Impairment ROM Impairment L hip IR and ER 20 deg Short Term Goal (STG) Pt will improve L hip IR and ER to at least 25 deg in order to demonstrate improved hip mobility for squats and ADLs 12/01/23: IR 40, 25 ER STG Duration 6 weeks MET Monogram Operator Goal (LTG) Pt will improve L hip IR and ER to at least 30 deg in order to demonstrate improved hip mobility for squats and ADLs 01/19/24: 35 deg IR and ER LTG Duration 12 weeks MET One Impairment function Impairment Oswestry 9/50 Senior Care Goal (LTG) Pt will decrease Oswestry <9/ 50 in order to demonstrate improved QOL and activity tolerance 01/19/24: 3/50 LTG Duration 12 weeks MET Progress Towards Goals Progress Towards Goals Goals Met Assessment Summary Assessment PT tolerated session well, demonstrates good effort and improved core bracing during hip extension and abduction. Progressed to quadruped hip ext/abd to address core stabilization, in addition to bear plank. Pt able to progress to bear crawl walk without issue. Requires increased time with all activities; however, does have improved quality with slower control of exercises. Physical Therapy Plan Frequency and Duration Frequency of Treatment 1-2x/wk Duration of treatment (weeks) 12 Plan of Care Start Date 11/02/23 Plan of Care End Date 01/28/24 Therapeutic Interventions Therapeutic Interventions Balance Training,Coordination Training,Gait Training,Home Exercise Program,Joint Mobilizations,Manual Therapy, Neuromuscular Re-education, Orthotic/Prosthetic Management ,Patient/Caregiver Education, Self-Care/Home Management, Sensory Integration,Soft Tissue Mobilization,Taping, Therapeutic Activities, Therapeutic Exercises Modalities Cold Pack/Ice Massage,Electric Stimulation,Hot Packs, Ultrasound Discharge Physical Therapy Discharge Reasons Goals Met Discharge Comments all goals met. pt back to lifting and all work/ recreational activities with minimal limitations Next Visit Focus/Plan Next Visit Plan discharge from PT
== END 2024-01-24 13:45 | disposition home or self-care (01) ==
LOC: PHYS 14:30
DX: M54.50 Low back pain, unspecified (principal); R53.1 Weakness
CPT/HCPCS: 97110; 97140; 97162; 97530